=== PATIENT | male | born 1970 | race Caucasian/White ===

== ENCOUNTER 2016-05-24 00:10 | Inpatient (IN) | payer OTHER ==
[~2016-05-24] VITALS: Ht 182.9 cm; Wt 126.7 kg
[~2016-05-24 00:10] MED LIST: ALPR.5T PO; CRS350T PO; HYDR-3720 PO; LISI40TA
[2016-05-24] MEDS ORDERED: METF850T2 PO (00:56)
[2016-05-24] MEDS ORDERED: LACTATED RINGERS 1,000 ML IV ONE (01:22)
[2016-05-24] MEDS ORDERED: KETOROLAC 30 MG/ML VIAL IVP STA (01:22)
[2016-05-24 01:28] LABS: BILIRUBIN,URINE NEGATIVE (NEGATIVE); KETONES,URINE 3+ (NEGATIVE); LEUKOCYTE ESTERASE ,URINE NEGATIVE (NEGATIVE); NITRITE,URINE NEGATIVE (NEGATIVE); PH,URINE 5 (5-9); PROTEIN,URINE NEGATIVE (NEGATIVE); UROBILINOGEN,URINE NORMAL (NORMAL)
[2016-05-24] MEDS ORDERED: ONDANSETRON 4 MG/2 ML (SDV) Z0FRAN IVP ONE ×2 (01:30→12:15)
[2016-05-24] MEDS ORDERED: NS IV 1000 ML 1,000 ML IV ONE ×2 (01:30→02:01)
[2016-05-24 01:36] LABS: BASOPHILS % (AUTO) 0 % (0-10); EOSINOPHILS % (AUTO) 0 % (0-10); LYMPHOCYTES # (AUTO) 1.2 X 10^3 (1.0-4.0); LYMPHOCYTES % (AUTO) 11 % (12-44); MEAN CORPUSCULAR HEMOGLOBIN 28 PG (25-34); MEAN CORPUSCULAR HGB CONC 34 G/DL (32-36); MEAN CORPUSCULAR VOLUME 81 FL (80-99); MEAN PLATELET VOLUME 10.5 FL (7.4-10.4); MONOCYTES # (AUTO) 0.8 X 10^3 (0.0-1.0); MONOCYTES % (AUTO) 7 % (0-12); NEUTROPHILS # (AUTO) 9.2 X 10^3 (1.8-7.8); NEUTROPHILS % (AUTO) 82 % (42-75); PLATELET COUNT 238 10^3/uL (130-400); RED CELL DISTRIBUTION WIDTH 12.8 % (10.0-14.5); WHITE BLOOD COUNT 11.3 10^3/uL (4.3-11.0)
[2016-05-24 01:37] LABS: SQUAMOUS EPITHELIAL CELL,UR RARE /HPF
--- NOTE | 2016-05-24 01:40 | ED Abdominal Pain ---
General Chief Complaint: Abdominal/GI Problems Stated Complaint: CONSTIPATION Nursing Triage Note: patient reports not having a BM since thursday the Sepsis Screen: No Definite Risk Source of Information: Patient History of Present Illness Time Seen By Provider: 01:00 Initial Comments PT C/O SEVERE GENERALIZED ABDOMINAL PAIN ALL WEEK AND IS GETTING WORSE--STATES HE IS CONSTIPATED STATES HE HAS NOT HAD A BM SINCE Thursday05/19/16--STOOL AT THAT TIME WAS LIQUID , AND NOT PASSED ANYTHING ELSE SINCE THEN STOPPED PASSING GAS SEVERAL HOURS AGO BEGAN HAVING NAUSEA AND VOMITING THIS EVENING--HAS VOMITED 3-4 TIMES THIS EVENING HAS HAD DECREASED APPETITE, BUT HAS EATEN AND DRANK TODAY, BUT TONIGHT HAS NOT BEEN ABLE TO KEEP ANYTHING DOWN NO FEVER NO PROBLEMS URINATING NO RELIEF WITH PRUNE JUICE AND ENEMAS STATES HE OCCASIONALLY GETS CONSTIPATED BUT IS RESOLVED WITH PRUNE JUICE AND "GUMMY FIBER" ,BUT HAS NEVER BEEN THIS BAD PCP: DR. LLAMAS Allergies and Home Medications Allergies Coded Allergies: No Known Drug Allergies (Unverified , 05/24/16) Home Medications Alprazolam 0.5 Mg Tablet (Reported) Carisoprodol 350 Mg Tablet #30 1 TAB PO TID Prescribed by: JAC UREÑA on 04/03/097 Hydrocodone Bit/Acetaminophen 1 Ea Tab #30 1 EA PO Q6HR PRN Prescribed by: JAC UREÑA on 04/03/097 Lisinopril 40 Mg Tablet (Reported) Metformin HCl 850 Mg Tablet 850 MG PO BID (Reported) Review of Systems Constitutional: no symptoms reported EENTM: No Symptoms Reported Respiratory: No Symptoms Reported Cardiovascular: No Symptoms Reported Gastrointestinal: See HPI Abdominal Pain ConstipatedDenies Diarrhea, Nausea Poor Appetite Vomiting Genitourinary: No Symptoms Reported Musculoskeletal: no symptoms reported Skin: no symptoms reported Psychiatric/Neurological: No Symptoms Reported Endocrine: No Symptoms Reported Hematologic/Lymphatic: No Symptoms Reported Past [id number] Hx Patient Social History Alcohol Use: Occasionally Uses Recreational Drug Use: No Smoking Status: Never a Smoker Type Used: Smokeless Tobacco Recent Foreign Travel: No Contact w/Someone Who Travel: No Recent Infectious Disease Expo: No Recent Hopitalizations: No Surgeries HX Surgeries: Yes Surgeries: Appendectomy Respiratory Hx Respiratory Disorders: No Cardiovascular Hx Cardiac Disorders: Yes Cardiac Disorders: Hypertension Neurological Hx Neurological Disorders: No Reproductive System Hx Reproductive Disorders: No Sexually Transmitted Disease: No Gastrointestinal Hx Gastrointestinal Disorders: Yes Gastrointestinal Disorders: Chronic Constipation Musculoskeletal Hx Musculoskeletal Disorders: No Endocrine Hx Endocrine Disorders: Yes Endocrine Disorders: Diabetes, Non-Insulin dep HEENT HX ENT Disorders: No Cancer Hx Cancer: No Psychosocial Hx Psychiatric Problems: No Integumentary HX Skin/Integumentary Disorder: No Blood Transfusions Hx Blood Disorders: No Physical Exam Vital Signs VS - Last 72 Hours, by Label 05/24/16 05/24/16 00:52 02:31 Temp 99.0 Pulse 108 84 Resp 18 14 B/P 129/94 137/85 Pulse Ox 96 94 O2 Delivery Room Air Capillary Refill : Less Than 3 Seconds General Appearance: WD/WN no apparent distress obese HEENT: PERRL/EOMI other (PETECHIAE TO FAC) Respiratory: normal breath sounds no respiratory distress no accessory muscle use Cardiovascular: regular rate, rhythm no murmur Gastrointestinal: abnormal bowel sounds (HIGH PITCHED/HYPERACTIVE) distended ( MILDLY )No guarding, No rebound, tenderness (MODERATE DIFFUSE TENDERNESS)No hernia, No mass Extremities: normal inspection Back: no CVA tenderness 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 no motor/sensory deficits alert oriented x 3 Skin: normal color warm/dry Progress/Results/Core Measures Results/Orders Lab Results Laboratory Tests Test 05/24/16 01:20 05/24/16 01:25 05/24/16 02:59 Range/Units Urine Bacteria NEGATIVE /HPF Urine Bilirubin NEGATIVE NEGATIVE Urine Casts NONE /LPF Urine Clarity CLEAR Urine Color YELLOW Urine Crystals NONE /LPF Urine Culture Indicated NO Urine Glucose (UA) 4+ H NEGATIVE Urine Ketones 3+ H NEGATIVE Urine Leukocyte Esterase NEGATIVE NEGATIVE Urine Mucus NEGATIVE /LPF Urine Nitrite NEGATIVE NEGATIVE Urine Protein NEGATIVE NEGATIVE Urine RBC NONE /HPF Urine RBC (Auto) NEGATIVE NEGATIVE Urine Specific [place] 1.015 L 1.016-1.022 Urine Squamous Epithelial Cells RARE /HPF Urine Urobilinogen NORMAL NORMAL MG/DL Urine WBC NONE /HPF Urine pH 5 5-9 Alanine Aminotransferase (ALT/SGPT) 50 0-55 U/L Albumin 4.7 H 3.2-4.5 G/DL Alkaline Phosphatase 92 40-136 U/L Amylase Level 50 25-125 U/L Anion Gap 15 H 5-14 MMOL/L Aspartate Amino Transf (AST/SGOT) 21 5-34 U/L BUN/Creatinine Ratio 9 Basophils # (Auto) 0.0 0.0-0.1 10^3/uL Basophils (%) (Auto) 0 0-10 % Blood Urea Nitrogen 11 7-18 MG/DL Calcium Level 9.2 8.5-10.1 MG/DL Carbon Dioxide Level 18 L 21-32 MMOL/L Chloride Level 102 98-107 MMOL/L Creatinine 1.22 0.60-1.30 MG/DL Eosinophils # (Auto) 0.0 0.0-0.3 10^3/uL Eosinophils (%) (Auto) 0 0-10 % Estimat Glomerular Filtration Rate > 60 Glucose Level 411 *H 70-105 MG/DL Hematocrit 44 40-54 % Hemoglobin 14.9 13.3-17.7 G/DL Lipase 29 8-78 U/L Lymphocytes # (Auto) 1.2 1.0-4.0 X 10^3 Lymphocytes (%) (Auto) 11 L 12-44 % Mean Corpuscular Hemoglobin 28 25-34 PG Mean Corpuscular Hemoglobin Concent 34 32-36 G/DL Mean Corpuscular Volume 81 80-99 FL Mean Platelet Volume 10.5 H 7.4-10.4 FL Monocytes # (Auto) 0.8 0.0-1.0 X 10^3 Monocytes (%) (Auto) 7 0-12 % Neutrophils # (Auto) 9.2 H 1.8-7.8 X 10^3 Neutrophils (%) (Auto) 82 H 42-75 % Platelet Count 238 130-400 10^3/uL Potassium Level 4.5 3.6-5.0 MMOL/L Red Blood Count 5.40 4.35-5.85 10^6/uL Red Cell Distribution Width 12.8 10.0-14.5 % Sodium Level 135 135-145 MMOL/L Total Bilirubin 0.4 0.1-1.0 MG/DL Total Protein 7.8 6.4-8.2 G/DL White Blood Count 11.3 H 4.3-11.0 10^3/uL Glucometer 300 H 70-110 MG/DL My Orders Orders-PAWAN GATES DO Acute Abd Series (05/24/16 01:10) Saline Lock/Iv-Start (05/24/16 01:22) Amylase (05/24/16 01:22) Cbc With Automated Diff (05/24/16 01:22) Comprehensive Metabolic Panel (05/24/16 01:22) Lipase (05/24/16 01:22) Ua Culture If Indicated (05/24/16 01:22) Ct Abdomen/Pelvis W (05/24/16 01:22) Saline Lock/Iv-Start (05/24/16 01:22) Ondansetron Injection (Zofran Injectio (05/24/16 01:30) Saline Lock/Iv-Start (05/24/16 01:22) Lactated Ringers (Lr 1000 Ml Iv Solution (05/24/16 01:22) Ketorolac Injection (Toradol Injection) (05/24/16 01:22) Ns Iv 1000 Ml (Sodium Chloride 0.9%) (05/24/16 01:30) Saline Lock/Iv-Start (05/24/16 02:01) Ns Iv 1000 Ml (Sodium Chloride 0.9%) (05/24/16 02:01) Insulin (Regular) Human (Humulin R (Per (05/24/16 02:15) Iohexol Injection (Omnipaque 350 Mg/Ml 1 (05/24/16 02:15) Ns (Ivpb) (Sodium Chloride 0.9% Ivpb Bag (05/24/16 02:15) Medications Given in ED Current Medications Medications Dose Ordered Sig/Xena Route Start Time Stop Time Status Last Admin Dose Admin Insulin Human Regular 20 unit ONCE ONCE IV 05/24/16 02:15 05/24/16 02:16 DC 05/24/16 02:27 20 UNIT Iohexol 100 ml ONCE ONCE IV 05/24/16 02:15 05/24/16 02:16 DC 05/24/16 02:15 100 ML Ondansetron HCl 4 mg 4 mg ONCE ONCE IVP 05/24/16 01:30 05/24/16 01:31 DC 05/24/16 01:30 4 MG Sodium Chloride 100 ml ONCE ONCE IV 05/24/16 02:15 05/24/16 02:16 DC 05/24/16 02:16 80 ML Sodium Chloride 1,000 ml @ 0 mls/hr Q0M ONCE IV 05/24/16 02:01 05/24/16 02:03 DC 05/24/16 02:26 0 MLS/HR Sodium Chloride 1,000 ml @ 100 mls/hr Q10H ONCE IV 05/24/16 01:30 05/24/16 11:29 05/24/16 01:30 100 MLS/HR Vital Signs/I&O Vital Sign - Last 12Hours 05/24/16 05/24/16 00:52 02:31 Temp 99.0 Pulse 108 84 Resp 18 14 B/P 129/94 137/85 Pulse Ox 96 94 O2 Delivery Room Air Blood Pressure Mean: 106 Progress Note : Progress Note NAUSEA AND PAIN IMPROVED WITH MEDICATIONS BLOOD SUGAR DOWN TO 300 PRIOR TO ADMIT. Diagnostic Imaging Comments ACUTE ABDOMEN XRAYS--ILEUS, POSSIBLE SBO? --PENDING RADIOLOGIST REVIEW CT ABDOMEN/PELVIS--RECTOSIGMOID COLON WITH FOCAL NARROWING AND IRREGULAR WALL THICKENING, CAUSING PARTIAL COLONIC OBSTRUCTION. ADJACENT LYMPH NODES NOTED. SUSPICION FOR NEOPLASTIC DISEASE. DIVERTICULAR DISEASE AND POSSIBLE FOCAL COLITIS/DIVERTICULITIS OR STRICTURE. PER [facility] VIA FAX @ [phone] Reviewed: Reviewed by Me Departure Communication Progress Notes 0255--SPOKE WITH DR. CERDA, SURGEON INFANTRY ASSAULTMAN. ACCEPTS PT FOR ADMIT. WILL CONSULT HOSPITALIST IN AM FOR MEDICAL ISSUES. Impression Impression: Primary Impression: PARTIAL COLON OBSTRUCTION Additional Impressions: POSSIBLE RECTOSIGMOID MASS POSSIBLE COLITIS/DIVERTICULITIS Uncontrolled diabetes mellitus Disposition: ADMITTED INPATIENT Condition: Improved Decision to Admit Reason: Admit from ER (General) Decision to Admit/Date: May 24, 2016 Time/Decision to Admit Time: 03:00 Departure-Patient Inst. Referrals: GABRIELLA LLAMAS MD (PCP/Family) Primary Care Physician PAWAN GATES DO May 24, 2016 01:40
[2016-05-24 01:57] LABS: ALANINE AMINOTRANSFERASE 50 U/L (0-55); ALBUMIN 4.7 G/DL (3.2-4.5); AMYLASE 50 U/L (25-125); ANION GAP 15 MMOL/L (5-14); ASPARTATE AMINO TRANSFERASE 21 U/L (5-34); BILIRUBIN,TOTAL 0.4 MG/DL (0.1-1.0); BLOOD UREA NITROGEN 11 MG/DL (7-18); BUN/CREATININE RATIO 9; CALCIUM 9.2 MG/DL (8.5-10.1); CARBON DIOXIDE 18 MMOL/L (21-32); CHLORIDE 102 MMOL/L (98-107); CREATININE SERUM 1.22 MG/DL (0.60-1.30); GFR ESTIMATED > 60; LIPASE 29 U/L (8-78); POTASSIUM 4.5 MMOL/L (3.6-5.0); SODIUM 135 MMOL/L (135-145); TOTAL PROTEIN 7.8 G/DL (6.4-8.2)
[2016-05-24 01:59] LABS: GLUCOSE 411 MG/DL (70-105)
[2016-05-24] MEDS ORDERED: inSUlin (REGULAR) HUMAN 1 UNIT/0.01 ML (CHARGE PER UNIT) IV ONE (02:15)
[2016-05-24] MEDS ORDERED: NS 100 ML (IVPB) BAG IV ONE (02:15)
[2016-05-24] MEDS ORDERED: IOHEXOL 350 MG/ML 100 ML (OMNIPAQUE 350) VIAL IV ONE (02:15)
[2016-05-24 02:31] VITALS: BP 137/85
[2016-05-24] MEDS ORDERED: LEVOFLOXACIN 500 MG/100 ML IV 100 ML IV ONE (03:15)
[2016-05-24] MEDS ORDERED: 1/2 NS IV SOLUTION 1,000 ML IV ONE (05:15)
[2016-05-24] MEDS: 1/2 NS IV SOLUTION 1,000 ML IV SCH ×3 (05:20→19:35)
[2016-05-24] MEDS: metroNIDAZOLE 500 MG/100 ML IVPB (PRE-MIX) IV SCH ×3 (06:23→18:07)
--- NOTE | 2016-05-24 06:27 | Diagnostic Imaging Report ---
INDICATION: Constipation. FINDINGS: The lungs are clear. There is no free air under the diaphragm. Upright film shows multiple air-fluid levels throughout the small bowel and colon. There is not significant dilatation of the bowel suggesting this is most likely an adynamic ileus versus bowel obstruction. No organomegaly. No pathologic calcifications. IMPRESSION: Findings most likely representing adynamic ileus. Dictated by: Dictated on workstation # [id number]
[2016-05-24] MEDS ORDERED: CATHETER FLUSH 10 ML SYR IV PRN (06:30)
[2016-05-24 06:42] LABS: BASOPHILS % (AUTO) 0 % (0-10); EOSINOPHILS # (AUTO) 0.1 10^3/uL (0.0-0.3); EOSINOPHILS % (AUTO) 1 % (0-10); LYMPHOCYTES # (AUTO) 1.8 X 10^3 (1.0-4.0); LYMPHOCYTES % (AUTO) 21 % (12-44); MEAN CORPUSCULAR HEMOGLOBIN 28 PG (25-34); MEAN CORPUSCULAR HGB CONC 34 G/DL (32-36); MEAN CORPUSCULAR VOLUME 82 FL (80-99); MEAN PLATELET VOLUME 10.6 FL (7.4-10.4); MONOCYTES # (AUTO) 0.8 X 10^3 (0.0-1.0); MONOCYTES % (AUTO) 10 % (0-12); NEUTROPHILS # (AUTO) 5.8 X 10^3 (1.8-7.8); NEUTROPHILS % (AUTO) 68 % (42-75); PLATELET COUNT 215 10^3/uL (130-400); RED BLOOD COUNT 4.71 10^6/uL (4.35-5.85); RED CELL DISTRIBUTION WIDTH 12.8 % (10.0-14.5); WHITE BLOOD COUNT 8.6 10^3/uL (4.3-11.0)
--- NOTE | 2016-05-24 06:46 | Diagnostic Imaging Report ---
PROCEDURE: CT abdomen and pelvis with contrast. TECHNIQUE: Multiple contiguous axial images were obtained through the abdomen and pelvis after administration of intravenous contrast. INDICATION: Chronic constipation. FINDINGS: The colon is distended and filled with fluid with air-fluid levels present. Small bowel is not distended. There is a segment of thickening of the sigmoid colon bowel wall measuring approximately 7 cm in length. This does appear to be causing obstruction and is of concern for colon carcinoma. There are several small adjacent mesenteric lymph nodes. No free fluid or findings are seen that would indicate acute diverticulitis. There are diverticuli present. There is fatty infiltration of the liver with mild hepatomegaly. The gallbladder and bile ducts are normal. The pancreas and spleen are normal. The adrenal glands and kidneys appear normal. There is good opacification of the aorta and abdominal vessels following IV contrast. There is no free air. There are no destructive bony lesions. IMPRESSION: Obstructive process in the distal colon with thickening of the sigmoid bowel wall and adjacent lymph nodes which are highly suspicious of carcinoma. Followup is needed. These findings are in agreement with the preliminary report. Dictated by: Dictated on workstation # [id number]
[2016-05-24 07:03] LABS: ALANINE AMINOTRANSFERASE 41 U/L (0-55); ANION GAP 11 MMOL/L (5-14); ASPARTATE AMINO TRANSFERASE 18 U/L (5-34); BILIRUBIN,TOTAL 0.3 MG/DL (0.1-1.0); BLOOD UREA NITROGEN 10 MG/DL (7-18); BUN/CREATININE RATIO 10; CALCIUM 8.2 MG/DL (8.5-10.1); CARBON DIOXIDE 20 MMOL/L (21-32); CHLORIDE 106 MMOL/L (98-107); CREATININE SERUM 0.96 MG/DL (0.60-1.30); GFR ESTIMATED > 60; GLUCOSE 207 MG/DL (70-105); POTASSIUM 4.1 MMOL/L (3.6-5.0); SODIUM 137 MMOL/L (135-145); TOTAL PROTEIN 6.6 G/DL (6.4-8.2)
[2016-05-24 08:00] VITALS: BP 138/74
--- NOTE | 2016-05-24 11:02 | Consultation ---
History of Present Illness History of Present Illness Patient Consulted On(matthew/time) 05/24/16 10:55 Date of Admission History of Present Illness Pt is a 46 yo male with complaints of constipation; surgery is asked to consult regarding possible large bowel obstruction. In the ER: PT C/O SEVERE GENERALIZED ABDOMINAL PAIN ALL WEEK AND IS GETTING WORSE--STATES HE IS CONSTIPATED STATES HE HAS NOT HAD A BM SINCE Thursday05/19/16--STOOL AT THAT TIME WAS LIQUID , AND NOT PASSED ANYTHING ELSE SINCE THEN STOPPED PASSING GAS SEVERAL HOURS AGO BEGAN HAVING NAUSEA AND VOMITING THIS EVENING--HAS VOMITED 3-4 TIMES THIS EVENING HAS HAD DECREASED APPETITE, BUT HAS EATEN AND DRANK TODAY, BUT TONIGHT HAS NOT BEEN ABLE TO KEEP ANYTHING DOWN NO FEVER NO PROBLEMS URINATING NO RELIEF WITH PRUNE JUICE AND ENEMAS STATES HE OCCASIONALLY GETS CONSTIPATED BUT IS RESOLVED WITH PRUNE JUICE AND "GUMMY FIBER" ,BUT HAS NEVER BEEN THIS BAD When seen today he states he basically has no pain, just the constipation and he feels like "things are starting to gurgle". On the CT; radiologist read possible large bowel obstruction in the sigmoid region, also multiple diverticula seen in this area. He denies any previous history of LLQ pain. Pt denied any hematochezia or melena. Denies N/V today. Allergies and Home Medications Allergies Coded Allergies: No Known Drug Allergies (Unverified , 05/24/16) Home Medications Alprazolam 0.5 Mg Tablet (Reported) Carisoprodol 350 Mg Tablet #30 1 TAB PO TID Prescribed by: JAC UREÑA on 04/03/097 Hydrocodone Bit/Acetaminophen 1 Ea Tab #30 1 EA PO Q6HR PRN Prescribed by: JAC UREÑA on 04/03/097 Lisinopril 40 Mg Tablet (Reported) Metformin HCl 850 Mg Tablet 850 MG PO BID (Reported) Past Wrfsrtx-Jwkcna-Ygbcgy Hx Patient Social History Alcohol Use: Denies Use Recreational Drug Use: No Smoking Status: Never a Smoker Type Used: Smokeless Tobacco Recent Foreign Travel: No Contact w/Someone Who Travel: No Recent Infectious Disease Expo: No Recent Hopitalizations: No Physical Abuse Screen: No Sexual Abuse: No Immunizations Up To Date PED Vaccines UTD: No Date of Pneumonia Vaccine: Feb 05, 2016 Date of Influenza Vaccine: Feb 05, 2016 Seasonal Allergies Seasonal Allergies: Yes Surgeries HX Surgeries: Yes Surgeries: Appendectomy Respiratory Hx Respiratory Disorders: No Cardiovascular Hx Cardiac Disorders: Yes Cardiac Disorders: Hypertension Neurological Hx Neurological Disorders: No Reproductive System Hx Reproductive Disorders: No Sexually Transmitted Disease: No Gastrointestinal Hx Gastrointestinal Disorders: Yes Gastrointestinal Disorders: Chronic Constipation, Hemorrhoids Musculoskeletal Hx Musculoskeletal Disorders: No Musculoskeletal Disorders: Fractures Endocrine Hx Endocrine Disorders: Yes Endocrine Disorders: Diabetes, Non-Insulin dep HEENT HX ENT Disorders: No Cancer Hx Cancer: No Psychosocial Hx Psychiatric Problems: No Behavioral Health Disorders: Anxiety, Depression Integumentary HX Skin/Integumentary Disorder: No Blood Transfusions Hx Blood Disorders: No Adverse Reaction to a Blood Tr: No Family Medical History Significant Family History: Diabetes, Other Conditions/Hx (states father and brother have diverticulitis) Family Medial History: Arthritis 19 FATHER 19 MOTHER G8 SISTER Asthma G8 SISTER Diabetes mellitus 19 FATHER FH: breast cancer 19 MOTHER FH: irritable bowel syndrome 19 FATHER G8 SISTER FH: skin cancer 19 FATHER G8 SISTER Myocardial infarction 19 MOTHER Review of Systems-General Constitutional: No chills, No diaphoresis, No dizziness, No weakness EENTM: No blurred vision, No ear discharge, No epistaxis, No hearing loss, No mouth swelling, No throat swelling, No vision loss Respiratory: No cough, No dyspnea on exertion, No hemoptysis, No short of breath Cardiovascular: No chest pain, No edema, No palpitations Gastrointestinal: see HPI constipationNo hematemesis, heartburnNo melena, nausea vomiting Genitourinary: No decreased output, No discharge, No dysuria, No hematuria Musculoskeletal: back pain muscle stiffnessNo neck pain Skin: No change in color, No change in hair/nails Psychiatric/Neurological: Denies Anxiety, Denies Depressed, Denies Headache, Denies Paresthesia, Denies Seizure Other denies any chronic illnesses, no swollen lymph nodes Physical Exam-General Problems Physical Exam Vital Signs Vital Sign - Last 12Hours 05/24/16 05/24/16 00:52 02:31 Temp 99.0 Pulse 108 Resp 18 B/P 129/94 Pulse Ox 96 O2 Delivery Room Air Capillary Refill : Less Than 3 Seconds General Appearance: WD/WN no apparent distress obese Eyes: Bilateral Eye EOMI, Bilateral Eye PERRL HEENT: pharynx normalNo scleral icterus (R), No scleral icterus (L), No pharyngeal erythema Neck: non-tender full range of motion supple normal inspection Respiratory: chest non-tender lungs clear normal breath sounds no respiratory distress Cardiovascular: regular rate, rhythm no edema no murmur Gastrointestinal: soft no organomegaly no pulsatile mass abnormal bowel sounds (??hyperactive) tenderness (in LLQ with deep palpation) Rectal: deferred Back: normal inspection no CVA tenderness no vertebral tenderness Extremities: normal range of motion non-tender no pedal edema no calf tenderness 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 no motor/sensory deficits alert normal mood/affect oriented x 3 Skin: normal color warm/dry Lymphatic: no adenopathy (neck, axilla or groin) Data Review Labs Laboratory Tests 05/24/16 01:20: Urine Bacteria NEGATIVE, Urine Bilirubin NEGATIVE, Urine Casts NONE, Urine Clarity CLEAR, Urine Color YELLOW, Urine Crystals NONE, Urine Culture Indicated NO, Urine Glucose (UA) 4+H, Urine Ketones 3+H, Urine Leukocyte Esterase NEGATIVE , Urine Mucus NEGATIVE, Urine Nitrite NEGATIVE, Urine Protein NEGATIVE, Urine RBC NONE, Urine RBC (Auto) NEGATIVE, Urine Specific [place] 1.015L, Urine Squamous Epithelial Cells RARE, Urine Urobilinogen NORMAL, Urine WBC NONE, Urine pH 5 05/24/16 01:25: Alanine Aminotransferase (ALT/SGPT) 50, Albumin 4.7H, Alkaline Phosphatase 92, Amylase Level 50, Anion Gap 15H, Aspartate Amino Transf (AST/SGOT) 21, BUN/ Creatinine Ratio 9, Basophils # (Auto) 0.0, Basophils (%) (Auto) 0, Blood Urea Nitrogen 11, Calcium Level 9.2, Carbon Dioxide Level 18L, Chloride Level 102, Creatinine 1.22, Eosinophils # (Auto) 0.0, Eosinophils (%) (Auto) 0, Estimat Glomerular Filtration Rate > 60, Glucose Level 411*H, Hematocrit 44, Hemoglobin 14.9, Lipase 29, Lymphocytes # (Auto) 1.2, Lymphocytes (%) (Auto) 11L, Mean Corpuscular Hemoglobin 28, Mean Corpuscular Hemoglobin Concent 34, Mean Corpuscular Volume 81, Mean Platelet Volume 10.5H, Monocytes # (Auto) 0.8, Monocytes (%) (Auto) 7, Neutrophils # (Auto) 9.2H, Neutrophils (%) (Auto) 82H, Platelet Count 238, Potassium Level 4.5, Red Blood Count 5.40, Red Cell Distribution Width 12.8, Sodium Level 135, Total Bilirubin 0.4, Total Protein 7.8, White Blood Count 11.3H 05/24/16 02:59: Glucometer 300H 05/24/16 06:00: Alanine Aminotransferase (ALT/SGPT) 41, Albumin 4.0, Alkaline Phosphatase 76, Anion Gap 11, Aspartate Amino Transf (AST/SGOT) 18, BUN/Creatinine Ratio 10, Basophils # (Auto) 0.0, Basophils (%) (Auto) 0, Blood Urea Nitrogen 10, Calcium Level 8.2L, Carbon Dioxide Level 20L, Chloride Level 106, Creatinine 0.96, Eosinophils # (Auto) 0.1, Eosinophils (%) (Auto) 1, Estimat Glomerular Filtration Rate > 60, Glucose Level 207H, Hematocrit 39L, Hemoglobin 13.0L, Lymphocytes # (Auto) 1.8, Lymphocytes (%) (Auto) 21, Mean Corpuscular Hemoglobin 28, Mean Corpuscular Hemoglobin Concent 34, Mean Corpuscular Volume 82, Mean Platelet Volume 10.6H, Monocytes # (Auto) 0.8, Monocytes (%) (Auto) 10 , Neutrophils # (Auto) 5.8, Neutrophils (%) (Auto) 68, Platelet Count 215, Potassium Level 4.1, Red Blood Count 4.71, Red Cell Distribution Width 12.8, Sodium Level 137, Total Bilirubin 0.3, Total Protein 6.6, White Blood Count 8.6 05/24/16 06:11: Glucometer 190H Assessment/Plan Assessment/Plan Assessment/Plan Possible Large bowel obstruction -Plan is to take pt for Flex Sig, possible biopsy, possible colonoscopy; need to look at this area of transition. Pt is NPO, on IV ABX and will get soap suds enema. Discussed the procedure with the pt all risks and benefits; including but not limited to pain, bleeding, infection and possible perforation of bowel. An option is to not do this procedure; but eventually it will get worse and may even need resection of bowel. I think this is the best option for pt; will then be able to make a better informed decision on next step in care of pt. He agreed and all qustions answered to his satisfaction. DM- uncontrolled, pt needs to do better job with diet and his meds. Medicine will help control his blood sugar. Elevated WBC - resolved now with IV ABX Clinical Quality Measures DVT/VTE Risk/Contraindication: Risk Factor Score Per Nursin RFS Level Per Nursing on Admit: 3=High SUMMER CERDA DO May 24, 2016 11:01
[2016-05-24] MEDS ORDERED: proPOfol 200 MG/20 ML (DIPRIVAN) VIAL IV ONE (11:23)
[2016-05-24] MEDS ORDERED: NS IV 500 ML 500 ML ONE (11:25)
[2016-05-24] MEDS ORDERED: ONDANSETRON 4 MG/2 ML (SDV) Z0FRAN ONE (11:59)
--- NOTE | 2016-05-24 12:02 | Progress Note-Post Operative ---
Post-Operative Progess Note [place] [employer] None Pre-Operative Diagnosis Possible large bowel obstruction Post-Operative Diagnosis Sigmoid mass Diverticula Int hemmorrhoids Post-Op Procedure Note Date of Procedure: May 24, 2016 Name of Procedure: Flex sig with biopsy Anesthesia Type IV sedation by STRATEGY LEAD with propofol Estimated blood loss (mL): scant Specimen(s) collected sigmoid mass bx SUMMER CERDA DO May 24, 2016 12:01
[2016-05-24] MEDS: ONDANSETRON 4 MG/2 ML (SDV) Z0FRAN IV PRN ×2 (12:08→12:30)
[2016-05-24] MEDS: inSUlin ASPART (NovoLOG) 1 UNIT/0.01 ML (CHARGE PER UNIT) SC SCH ×2 (12:30→18:19)
--- NOTE | 2016-05-24 12:35 | History & Physical-Hospitalist ---
HPI History of Present Illness: HPI/Chief Complaint this is a 46-year-old white male with history of type II diabetes. He was admitted yesterday with partial bowel obstruction. CT showed evidence of a mass in the sigmoid colon concerning for malignancy. He is currently just post flexible sigmoidoscopy by Dr. Lowe. [place] of nausea and abdominal cramping and pain. After review of the scope with Dr. Lowe this looks most likely to be an inflammatory mass from diverticulitis. His plan is to continue clear liquids throughout the weekend and then surgical resection Thursday or Thursday. Source: family, RN/MD Exam Limitations: clinical condition Date Seen 05/24/16 Attending Physician Darrel Lowe Rachel L MD Referring Physician Date of Admission May 24, 2016 at 03:00 Home Medications & Allergies Home Medications Reviewed patient Home Medication Reconciliation Form Allergies Coded Allergies: No Known Drug Allergies (Unverified , 05/24/16) Past Jglrhvv-Lddvre-Fvifzd Hx Patient Social History Marrital Status: Alcohol Use: Denies Use Recreational Drug Use: No Smoking Status: Never a Smoker Type Used: Smokeless Tobacco Physical Abuse Screen: No Sexual Abuse: No Recent Foreign Travel: No Contact w/other who traveled: No Recent Hopitalizations: No Recent Infectious Disease Expo: No Immunizations Up To Date Date of Pneumonia Vaccine: Feb 05, 2016 Date of Influenza Vaccine: Feb 05, 2016 Seasonal Allergies Seasonal Allergies: Yes Surgeries HX Surgeries: Yes Surgeries: Appendectomy Respiratory Hx Respiratory Disorders: No Cardiovascular Hx Cardiovascular Disorders: Yes Cardiac Disorders: Hypertension Neurological Hx Neurological Disorders: No Reproductive System Hx Reproductive Disorders: No Sexually Transmitted Disease: No Gastrointestinal Hx Gastrointestinal Disorders: Yes Gastrointestinal Disorders: Chronic Constipation, Hemorrhoids Musculoskeletal Hx Musculoskeletal Disorders: No Musculoskeletal Disorders: Fractures Endocrine Hx Endocrine Disorders: Yes Endocrine Disorders: Diabetes, Non-Insulin dep HEENT HX ENT Disorders: No Cancer Hx Cancer: No Psychosocial Hx Psychiatric Problems: No Behavioral Health Disorders: Anxiety, Depression Integumentary HX Skin/Integumentary Disorder: No Blood Transfusions Hx Blood Disorders: No Adverse Reaction to a Blood Tr: No Family Medical History Significant Family History: Diabetes, Other Conditions/Hx (states father and brother have diverticulitis) Family Hx: Arthritis 19 FATHER 19 MOTHER G8 SISTER Asthma G8 SISTER Diabetes mellitus 19 FATHER FH: breast cancer 19 MOTHER FH: irritable bowel syndrome 19 FATHER G8 SISTER FH: skin cancer 19 FATHER G8 SISTER Myocardial infarction 19 MOTHER Review of Systems Constitutional: see HPI Gastrointestinal: abdominal pain constipation Musculoskeletal: no symptoms reported Physical Exam Physical Exam Vital Signs Vital Sign - Last 12Hours 05/24/16 05/24/16 00:52 02:31 Temp 99.0 Pulse 108 Resp 18 B/P 129/94 Pulse Ox 96 O2 Delivery Room Air Capillary Refill : Less Than 3 Seconds General Appearance: Mild Distress HEENT: Normal ENT Inspection Neck: Supple Respiratory: Lungs Clear Normal Breath Sounds No Accessory Muscle Use No Respiratory Distress Cardiovascular: Regular Rate, Rhythm No Gallop No Murmur Gastrointestinal: Abnormal Bowel Sounds Distended Tenderness Rectal: Deferred Extremity: Normal Inspection Normal Range of Motion Non Tender No Calf Tenderness Neurologic/Psychiatric: Alert Oriented x3 No Motor/Sensory Deficits Results Results/Procedures Lab Laboratory Tests 05/24/16 01:25 05/24/16 06:00 Assessment/Plan Admission Diagnosis 1.partial bowel obstruction secondary to inflammatory mass of the sigmoid colon most likely diverticular in origin-resection per Dr. Lowe 2. Type II diabetes out of control 3. Hypertension by history 4. Morbid obesity Plan; bowel prep per Dr. Lowe close glucose monitoring, follow labs and an A1c Clinical Quality Measures DVT/VTE Risk/Contraindication: Risk Factor Score Per Nursin RFS Level Per Nursing on Admit: 3=High ELIZABETH BARRIENTOS MD May 24, 2016 12:35
[2016-05-24] MEDS: fentaNYL INJECTION 100 MCG/2 ML AMP IV PRN ×3 (13:08→20:26)
[2016-05-24] MEDS: CATHETER FLUSH 10 ML SYR IV SCH ×2 (15:05→22:00)
[2016-05-24 16:00] VITALS: BP 143/81
[2016-05-24 20:00] VITALS: BP 141/65
[2016-05-24] MEDS: POLYETHYLENE GLYCOL 17 GM (MIRALAX) PACK PO SCH (20:26)
[2016-05-24] MEDS: LEVOFLOXACIN 500 MG/D5W 100 ML (PRE-MIX) IV SCH (20:26)
[2016-05-25] VITALS: BP 118/74
[2016-05-25] MEDS: metroNIDAZOLE 500 MG/100 ML IVPB (PRE-MIX) IV SCH ×4 (00:12→17:43)
[2016-05-25] MEDS: inSUlin ASPART (NovoLOG) 1 UNIT/0.01 ML (CHARGE PER UNIT) SC SCH ×4 (00:15→18:45)
[2016-05-25] MEDS: 1/2 NS IV SOLUTION 1,000 ML IV SCH ×3 (00:17→16:26)
[2016-05-25] MEDS: fentaNYL INJECTION 100 MCG/2 ML AMP IV PRN ×5 (03:40→21:55)
[2016-05-25 04:00] VITALS: BP 137/78
[2016-05-25] MEDS: CATHETER FLUSH 10 ML SYR IV SCH ×3 (05:58→22:00)
[2016-05-25 07:40] LABS: BASOPHILS % (AUTO) 0 % (0-10); EOSINOPHILS # (AUTO) 0.1 10^3/uL (0.0-0.3); EOSINOPHILS % (AUTO) 1 % (0-10); LYMPHOCYTES # (AUTO) 1.7 X 10^3 (1.0-4.0); LYMPHOCYTES % (AUTO) 26 % (12-44); MEAN CORPUSCULAR HEMOGLOBIN 28 PG (25-34); MEAN CORPUSCULAR HGB CONC 33 G/DL (32-36); MEAN CORPUSCULAR VOLUME 83 FL (80-99); MEAN PLATELET VOLUME 10.1 FL (7.4-10.4); MONOCYTES # (AUTO) 0.7 X 10^3 (0.0-1.0); MONOCYTES % (AUTO) 10 % (0-12); NEUTROPHILS # (AUTO) 3.9 X 10^3 (1.8-7.8); NEUTROPHILS % (AUTO) 62 % (42-75); PLATELET COUNT 191 10^3/uL (130-400); RED BLOOD COUNT 4.62 10^6/uL (4.35-5.85); RED CELL DISTRIBUTION WIDTH 12.8 % (10.0-14.5); WHITE BLOOD COUNT 6.4 10^3/uL (4.3-11.0)
[2016-05-25 07:48] LABS: INR 1.1 (0.8-1.4); PROTHROMBIN TIME PATIENT 13.7 SEC (12.2-14.7)
[2016-05-25 08:00] VITALS: BP 143/84
[2016-05-25 08:06] LABS: ALANINE AMINOTRANSFERASE 35 U/L (0-55); ALBUMIN 3.8 G/DL (3.2-4.5); ANION GAP 8 MMOL/L (5-14); ASPARTATE AMINO TRANSFERASE 18 U/L (5-34); BILIRUBIN,TOTAL 0.4 MG/DL (0.1-1.0); BLOOD UREA NITROGEN 6 MG/DL (7-18); BUN/CREATININE RATIO 7; CALCIUM 8.2 MG/DL (8.5-10.1); CARBON DIOXIDE 23 MMOL/L (21-32); CHLORIDE 106 MMOL/L (98-107); CREATININE SERUM 0.91 MG/DL (0.60-1.30); GFR ESTIMATED > 60; GLUCOSE 201 MG/DL (70-105); POTASSIUM 3.8 MMOL/L (3.6-5.0); SODIUM 137 MMOL/L (135-145); TOTAL PROTEIN 6.8 G/DL (6.4-8.2)
--- NOTE | 2016-05-25 11:08 | Progress Note-Hospitalist ---
Subjective HPI/CC On Admission this is a 46-year-old white male with history of type II diabetes. He was admitted yesterday with partial bowel obstruction. CT showed evidence of a mass in the sigmoid colon concerning for malignancy. He is currently just post flexible sigmoidoscopy by Dr. Lowe. [place] of nausea and abdominal cramping and pain. After review of the scope with Dr. Lowe this looks most likely to be an inflammatory mass from diverticulitis. His plan is to continue clear liquids throughout the weekend and then surgical resection Thursday or Thursday. Date Seen 05/25/16 Subjective/Events-last exam patient's abdominal discomfort and gas is much better than it was yesterday. We talked about his diabetes and weight loss. He had been on metformin 875 twice a day but complains of nausea with it and occasional diarrhea. Discussed with him that his A1c was 9.1 currently he complains primarily of headache today which may be related to caffeine withdrawal Review of Systems HEENT: Head Aches Gastrointestinal: : Nausea Objective Exam Vital Signs Vital Sign - Last 12Hours 05/24/16 05/24/16 00:52 02:31 Temp 99.0 Pulse 108 Resp 18 B/P 129/94 Pulse Ox 96 O2 Delivery Room Air Capillary Refill : Less Than 3 Seconds General Appearance: No Apparent Distress WD/WN Obese HEENT: TMs Normal Respiratory: Lungs Clear Normal Breath Sounds No Accessory Muscle Use No Respiratory Distress Cardiovascular: Regular Rate, Rhythm No Gallop No Murmur Normal Peripheral Pulses Gastrointestinal: Normal Bowel Sounds No Organomegaly Non Tender Soft Rectal: Deferred Back: Normal Inspection No CVA Tenderness Extremity: Non Tender No Calf Tenderness No Pedal Edema Neurologic/Psychiatric: Alert Oriented x3 No Motor/Sensory Deficits Normal Mood/Affect Skin: Normal Color Warm/Dry Results/Procedures Lab Laboratory Tests 05/25/16 07:15 Assessment/Plan Assessment and Plan Assess & Plan/Chief Complaint 1. partial bowel obstruction secondary to inflammatory mass of the sigmoid colon most likely diverticular in origin-resection per Dr. Lowe in a.m. 2. Type II diabetes out of control-hemoglobin A1c 9.1 3. Hypertension by history 4. Morbid obesity 5. headache most likely related to caffeine withdrawal ELIZABETH BARRIENTOS MD May 25, 2016 11:08
[2016-05-25 12:00] VITALS: BP 165/80
[2016-05-25] MEDS ORDERED: GOLYTELY POWDER 4000 ML BTL PO ONE (12:00)
[2016-05-25] MEDS: ONDANSETRON 4 MG/2 ML (SDV) Z0FRAN IV PRN ×2 (12:36→17:43)
[2016-05-25 16:00] VITALS: BP 174/96
--- NOTE | 2016-05-25 16:07 | Anesthesia-General Post-Op ---
MAC Patient Condition Mental Status/LOC: Same as Preop Cardiovascular: Satisfactory Nausea/Vomiting: Absent Respiratory: Satisfactory Pain: Controlled Complications: Absent Post Op Complications Complications None Follow Up Care/Instructions Patient Instructions None needed. Anesthesiology Discharge Order Discharge Order Patient is doing well, no complaints, stable vital signs, no apparent adverse anesthesia problems. No complications reported per nursing. RC ESCOBAR CRNA May 25, 2016 16:07
[2016-05-25] MEDS ORDERED: MAGNESIUM CITRATE 300 ML BTL PO ONE (16:15)
[2016-05-25] MEDS ORDERED: POLYETHYLENE GLYCOL 17 GM (MIRALAX) PACK PO ONE (16:15)
[2016-05-25] MEDS: lisINopril 20 MG (ZESTRIL) TAB PO SCH (16:26)
--- NOTE | 2016-05-25 16:30 | Progress Note ---
Subjective Subjective/Events-last exam Pt seen and examined. States pain is minimal. He has had 2 small BM's, but they were brown. He tried to take the Go-lytely, but vomited it up. He is tolerating clears and said the Miralax made him go the bathroom. Denies nausea at this time. Review of Systems General: No Chills, No Night Sweats, Fatigue HEENT: No Head Aches, No Visual Changes, Sinus Congestion Post Nasal Drip Pulmonary: No Dyspnea, No Cough Cardiovascular: No: Chest Pain, Palpitations Gastrointestinal: : Nausea: VomitingNo: Abdominal Pain Genitourinary: No Dysuria, No Frequency Musculoskeletal: No: neck pain, shoulder pain Neurological: No: Incoordination, Numbness, Weakness Objective Exam Vital Signs Date Time Temp Pulse Resp B/P Pulse Ox O2 Delivery O2 Flow Rate FiO2 05/25/16 12:00 98.4 75 18 165/80 97 Room Air 05/25/16 08:00 98.5 75 20 143/84 96 Room Air 05/25/16 04:00 99.4 75 18 137/78 97 Room Air 05/25/16 00:00 99.1 83 20 118/74 94 Room Air 05/24/16 20:25 Room Air 05/24/16 20:00 98.6 73 22 141/65 95 Room Air I & O 05/25/16 07:00 Intake Total 4005 ml Output Total 2600 ml Balance 1405 ml Capillary Refill : Less Than 3 Seconds General Appearance: No Apparent Distress WD/WN Obese HEENT: PERRL/EOMI Pharynx Normal Neck: Supple Respiratory: Lungs Clear Normal Breath Sounds No Accessory Muscle Use No Respiratory Distress Cardiovascular: Regular Rate, Rhythm No Gallop No Murmur Normal Peripheral Pulses Gastrointestinal: soft no organomegaly no pulsatile mass abnormal bowel sounds (??hyperactive) tenderness (in LLQ with deep palpation) Extremity: Non Tender No Calf Tenderness No Pedal Edema Neurologic/Psychiatric: Alert Oriented x3 No Motor/Sensory Deficits Normal Mood/Affect Skin: Normal Color Warm/Dry Results Lab Laboratory Tests 05/24/16 18:12: Glucometer 218H 05/25/16 00:12: Glucometer 204H 05/25/16 05:52: Glucometer 201H 05/25/16 07:15: Alanine Aminotransferase (ALT/SGPT) 35, Albumin 3.8, Alkaline Phosphatase 67, Anion Gap 8, Aspartate Amino Transf (AST/SGOT) 18, BUN/Creatinine Ratio 7, Basophils # (Auto) 0.0, Basophils (%) (Auto) 0, Blood Urea Nitrogen 6L, Calcium Level 8.2L, Carbon Dioxide Level 23, Chloride Level 106, Creatinine 0.91, Eosinophils # (Auto) 0.1, Eosinophils (%) (Auto) 1, Estimat Glomerular Filtration Rate > 60, Glucose Level 201H, Hematocrit 39L, Hemoglobin 12.7L, Hemoglobin A1c 9.1H, INR Comment 1.1, Lymphocytes # (Auto) 1.7, Lymphocytes (%) (Auto) 26, Mean Corpuscular Hemoglobin 28, Mean Corpuscular Hemoglobin Concent 33, Mean Corpuscular Volume 83, Mean Platelet Volume 10.1, Monocytes # (Auto) 0.7, Monocytes (%) (Auto) 10, Neutrophils # (Auto) 3.9, Neutrophils (%) (Auto) 62, Platelet Count 191, Potassium Level 3.8, Prothrombin Time 13.7, Red Blood Count 4.62, Red Cell Distribution Width 12.8, Sodium Level 137, Total Bilirubin 0.4, Total Protein 6.8, White Blood Count 6.4 05/25/16 12:04: Glucometer 297H Assessment/Plan Assessment/Plan Assessment/Plan Sigmoid Mass causing stricture and therefore partial Large bowel obstruction -Plan is to take pt for Hand assisted Lap Sigmoid colon resection. We do not have pathology on mass yet, but he will need resection whether its benign or cancer. Discussed the procedure with the pt all risks and benefits ; including but not limited to pain, bleeding, infection, scar and possible damage to bowel with need for colostomy. We also discussed the up to 1% leak rate after anastomosis. In addition I told him if he was not clear in AM, I would postpone surgery until thursday. I am giving him and extra dose of Miralax now and stopping Go-lytely and giving him a bottle of Mg Citrate. All qustions answered to his satisfaction. DM- uncontrolled, pt needs to do better job with diet and his meds. Medicine will help control his blood sugar. Elevated WBC - resolved now with IV ABX Clinical Quality Measures DVT/VTE Risk/Contraindication: Risk Factor Score Per Nursin RFS Level Per Nursing on Admit: 3=High SUMMER CERDA DO May 25, 2016 16:30
[2016-05-25 20:00] VITALS: BP 170/90
[2016-05-25] MEDS: POLYETHYLENE GLYCOL 17 GM (MIRALAX) PACK PO SCH (21:49)
[2016-05-25] MEDS: LEVOFLOXACIN 500 MG/D5W 100 ML (PRE-MIX) IV SCH (21:50)
[2016-05-26] VITALS: BP 140/66
[2016-05-26] MEDS: 1/2 NS IV SOLUTION 1,000 ML IV SCH ×4 (01:09→16:14)
[2016-05-26] MEDS: metroNIDAZOLE 500 MG/100 ML IVPB (PRE-MIX) IV SCH ×4 (01:09→18:29)
[2016-05-26] MEDS: inSUlin ASPART (NovoLOG) 1 UNIT/0.01 ML (CHARGE PER UNIT) SC SCH ×4 (01:21→19:02)
[2016-05-26 04:00] VITALS: BP 168/96
[2016-05-26 04:57] LABS: BASOPHILS % (AUTO) 0 % (0-10); EOSINOPHILS # (AUTO) 0.1 10^3/uL (0.0-0.3); EOSINOPHILS % (AUTO) 1 % (0-10); LYMPHOCYTES # (AUTO) 2.1 X 10^3 (1.0-4.0); LYMPHOCYTES % (AUTO) 35 % (12-44); MEAN CORPUSCULAR HEMOGLOBIN 28 PG (25-34); MEAN CORPUSCULAR HGB CONC 33 G/DL (32-36); MEAN CORPUSCULAR VOLUME 83 FL (80-99); MEAN PLATELET VOLUME 9.9 FL (7.4-10.4); MONOCYTES # (AUTO) 0.6 X 10^3 (0.0-1.0); MONOCYTES % (AUTO) 10 % (0-12); NEUTROPHILS # (AUTO) 3.1 X 10^3 (1.8-7.8); NEUTROPHILS % (AUTO) 53 % (42-75); PLATELET COUNT 196 10^3/uL (130-400); RED BLOOD COUNT 4.68 10^6/uL (4.35-5.85); RED CELL DISTRIBUTION WIDTH 12.8 % (10.0-14.5); WHITE BLOOD COUNT 5.9 10^3/uL (4.3-11.0)
[2016-05-26 05:22] LABS: ANION GAP 10 MMOL/L (5-14); BLOOD UREA NITROGEN 4 MG/DL (7-18); BUN/CREATININE RATIO 4; CALCIUM 8.3 MG/DL (8.5-10.1); CARBON DIOXIDE 23 MMOL/L (21-32); CHLORIDE 106 MMOL/L (98-107); CREATININE SERUM 0.89 MG/DL (0.60-1.30); GFR ESTIMATED > 60; GLUCOSE 190 MG/DL (70-105); MAGNESIUM 2.2 MG/DL (1.8-2.4); POTASSIUM 3.7 MMOL/L (3.6-5.0); SODIUM 139 MMOL/L (135-145)
[2016-05-26] MEDS: CATHETER FLUSH 10 ML SYR IV SCH ×3 (06:17→22:38)
--- NOTE | 2016-05-26 07:23 | PROCEDURE REPORT ---
PROCEDURE PHYSICIAN: SUMMER LOWE DATE OF PROCEDURE: 05/24/2016 PREOPERATIVE DIAGNOSIS: Possible large bowel obstruction. POSTOPERATIVE DIAGNOSES: 1. Sigmoid mass. 2. Diverticula. 3. Internal hemorrhoids. PROCEDURE: Flexible sigmoidoscopy with biopsy. SURGEON: Dr. Lowe FOLLOW UP MANAGER: None. ANESTHESIA: IV sedation with propofol by the VP ANALYSIS. SPECIMEN: Biopsy from sigmoid mass. BLOOD LOSS: Scant. FLUIDS: Minimal. POSTOPERATIVE: Stable. INDICATIONS FOR THE PROCEDURE: The patient is a 46-year-old male with what looked like a possible large bowel obstruction. On CT with possible transition point, needed flexible sigmoidoscopy to look at this area. FINDINGS: The patient had a mass in the sigmoid area, and also looked to me like some pus. It looked more like a possible inflammatory reaction from diverticulitis. He also had some large diverticula and some internal hemorrhoids. PROCEDURE NOTE: After informed consent was obtained, the patient brought to the endoscopy suite, placed in the left lateral decubitus position. IV sedation was performed by the VP ANALYSIS. The scope was then inserted and up about 30 cm, noted a lot of diverticula and a mass with possible some purulent fluid. Able to actually get the scope up past this area up and up to the splenic flexure. There is some liquid fecal material in here. A picture was taken and then withdrew back to this area, did a couple biopsies of this mass and then slowly withdrew the scope down into the rectal vault. Retroflex rectal vault some and saw some internal hemorrhoids, took a picture of this and then removed the scope. The patient tolerated the procedure and transferred recovery room in stable condition. Job ID: [id number] Dictated Date: 05/24/2016 12:04:08 [facility] Director Date: 05/26/2016 07:15:49 / ray
[2016-05-26] MEDS: fentaNYL INJECTION 100 MCG/2 ML AMP IV PRN ×3 (07:45→19:02)
[2016-05-26 08:00] VITALS: BP 160/94
[2016-05-26] MEDS ORDERED: MULT-10 PO (09:30)
[2016-05-26] MEDS ORDERED: LISI-552 PO (09:30)
[2016-05-26] MEDS: lisINopril 20 MG (ZESTRIL) TAB PO SCH (11:00)
[2016-05-26] MEDS: POLYETHYLENE GLYCOL 17 GM (MIRALAX) PACK PO SCH ×3 (11:00→20:52)
[2016-05-26 12:00] VITALS: BP 141/80
--- NOTE | 2016-05-26 12:14 | Progress Note ---
Subjective Subjective/Events-last exam Pt seen and examined. He is ambulating in the schneider. Unable to take Mg Citrate , caused him to vomit. He is doing ok with Miralax, thinks he is almost clean, but had "brown" BM this am. Denies abd pain. Denies nausea and vomiting, except with prep to clean his bowels. Review of Systems General: No Chills, No Night Sweats HEENT: No Head Aches, No Visual Changes Pulmonary: No Dyspnea, No Cough Cardiovascular: No: Chest Pain Gastrointestinal: : VomitingNo: Abdominal Pain, Nausea Genitourinary: No Dysuria, No Frequency Objective Exam Vital Signs Date Time Temp Pulse Resp B/P Pulse Ox O2 Delivery O2 Flow Rate FiO2 05/26/16 08:00 97.4 76 24 160/94 96 Room Air 05/26/16 04:00 97.8 68 18 168/96 97 Room Air 05/26/16 00:00 97.8 75 18 140/66 96 Room Air 05/25/16 20:00 98.2 71 20 170/90 96 Room Air 05/25/16 20:00 Room Air 05/25/16 16:00 98.5 73 22 174/96 99 Room Air I & O 05/26/16 07:00 Intake Total 2480 ml Output Total 8050 ml Balance -5570 ml Capillary Refill : Less Than 3 Seconds General Appearance: No Apparent Distress WD/WN Obese HEENT: PERRL/EOMI Pharynx Normal Neck: Supple Respiratory: Lungs Clear Normal Breath Sounds No Accessory Muscle Use No Respiratory Distress Cardiovascular: Regular Rate, Rhythm No Gallop No Murmur Normal Peripheral Pulses Gastrointestinal: soft no organomegaly no pulsatile mass abnormal bowel sounds (??hyperactive) distended (mildly, this may just be his normal) tenderness (in LLQ with deep palpation) Extremity: Non Tender No Calf Tenderness No Pedal Edema Neurologic/Psychiatric: Alert Oriented x3 No Motor/Sensory Deficits Normal Mood/Affect Skin: Normal Color Warm/Dry Results Lab Laboratory Tests 05/25/16 18:29: Glucometer 181H 05/26/16 01:14: Glucometer 217H 05/26/16 04:40: Anion Gap 10, BUN/Creatinine Ratio 4, Basophils # (Auto) 0.0, Basophils (%) ( Auto) 0, Blood Urea Nitrogen 4L, Calcium Level 8.3L, Carbon Dioxide Level 23, Chloride Level 106, Creatinine 0.89, Eosinophils # (Auto) 0.1, Eosinophils (%) ( Auto) 1, Estimat Glomerular Filtration Rate > 60, Glucose Level 190H, Hematocrit 39L, Hemoglobin 12.9L, Lymphocytes # (Auto) 2.1, Lymphocytes (%) ( Auto) 35, Magnesium Level 2.2, Mean Corpuscular Hemoglobin 28, Mean Corpuscular Hemoglobin Concent 33, Mean Corpuscular Volume 83, Mean Platelet Volume 9.9, Monocytes # (Auto) 0.6, Monocytes (%) (Auto) 10, Neutrophils # (Auto) 3.1, Neutrophils (%) (Auto) 53, Platelet Count 196, Potassium Level 3.7, Red Blood Count 4.68, Red Cell Distribution Width 12.8, Sodium Level 139, White Blood Count 5.9 05/26/16 11:29: Glucometer 224H Assessment/Plan Assessment/Plan Assessment/Plan Sigmoid Mass causing stricture and therefore partial Large bowel obstruction -Plan is to take pt for Hand assisted Lap Sigmoid colon resection. We do not have pathology on mass yet, but he will need resection whether its benign or cancer. Discussed the procedure with the pt all risks and benefits ; including but not limited to pain, bleeding, infection, scar and possible damage to bowel with need for colostomy. We also discussed the up to 1% leak rate after anastomosis. In addition Unfortunately he was not clear this AM; therefore will postpone surgery until Thursday. I am giving him three doses of Miralax today and will also write for Emycin and Neomycin base for bowel prep. All qustions answered to his satisfaction. DM- uncontrolled, pt needs to do better job with diet and his meds. Medicine will help control his blood sugar. Elevated WBC - resolved now with IV ABX Clinical Quality Measures DVT/VTE Risk/Contraindication: Risk Factor Score Per Nursin RFS Level Per Nursing on Admit: 3=High SUMMER CERDA DO May 26, 2016 12:14
[2016-05-26] MEDS ORDERED: NEOMYCIN SULFATE 500 MG TAB PO SCH (13:00)
[2016-05-26] MEDS: ONDANSETRON 4 MG/2 ML (SDV) Z0FRAN IV PRN ×2 (15:00→18:36)
[2016-05-26] MEDS: NEOMYCIN SULFATE 500 MG TAB PO SCH ×3 (15:00→22:36)
[2016-05-26] MEDS: ERYTHROMYCIN BASE 250 MG TAB/CAP (NON-FORMULARY) PO SCH ×3 (15:01→22:35)
[2016-05-26 16:00] VITALS: BP 164/84
[2016-05-26] MEDS ORDERED: ONDANSETRON 4 MG/2 ML (SDV) Z0FRAN IVP NR (18:45)
[2016-05-26] MEDS ORDERED: PROMETHAZINE INJ 25 MG/ML (PHENERGAN) AMP IVP PRN (18:45)
[2016-05-26 20:00] VITALS: BP 174/87
[2016-05-26] MEDS: LEVOFLOXACIN 500 MG/D5W 100 ML (PRE-MIX) IV SCH (20:52)
[2016-05-27 00:35] VITALS: BP 141/78
[2016-05-27] MEDS: metroNIDAZOLE 500 MG/100 ML IVPB (PRE-MIX) IV SCH ×3 (00:35→12:20)
[2016-05-27] MEDS: inSUlin ASPART (NovoLOG) 1 UNIT/0.01 ML (CHARGE PER UNIT) SC SCH ×5 (00:47→23:59)
[2016-05-27] MEDS: 1/2 NS IV SOLUTION 1,000 ML IV SCH ×4 (03:59→21:17)
[2016-05-27 04:00] VITALS: BP 148/87
[2016-05-27] MEDS: CATHETER FLUSH 10 ML SYR IV SCH ×2 (06:00→21:17)
[2016-05-27 08:00] VITALS: BP 160/94
[2016-05-27] MEDS: lisINopril 20 MG (ZESTRIL) TAB PO SCH (09:00)
[2016-05-27] MEDS ORDERED: LIDOCAINE/EPI 1%-1:100,000 (XYLOCAINE) 20ML ONE ×2 (10:18→13:09)
[2016-05-27] MEDS ORDERED: ONDANSETRON 4 MG/2 ML (SDV) Z0FRAN ONE (11:53)
[2016-05-27] MEDS ORDERED: LACTATED RINGERS 1,000 ML IV ONE ×3 (11:53→15:11)
[2016-05-27] MEDS ORDERED: MIDAZOLAM 2 MG/2 ML (VERSED) VIAL ONE ×2 (11:53→12:16)
[2016-05-27] MEDS ORDERED: ROCURONIUM 50 MG/5 ML (ZEMURON) VIAL IV ONE ×2 (11:53→13:23)
[2016-05-27] MEDS ORDERED: SEVOFLURANE (ULTANE) 15 ML INHAL SOLN ONE ×2 (11:53→15:25)
[2016-05-27] MEDS ORDERED: proPOfol 200 MG/20 ML (DIPRIVAN) VIAL IV ONE ×2 (11:53→12:52)
[2016-05-27] MEDS ORDERED: fentaNYL INJECTION 250 MCG/5 ML AMP ONE (11:54)
--- NOTE | 2016-05-27 12:03 | Progress Note ---
Subjective Subjective/Events-last exam Pt seen and examined, plan to go to OR today. He states still had a brown BM. Review of Systems Gastrointestinal: : Abdominal PainNo: Nausea, Vomiting Objective Exam Vital Signs Date Time Temp Pulse Resp B/P Pulse Ox O2 Delivery O2 Flow Rate FiO2 05/27/16 04:00 96.7 61 18 148/87 95 Room Air 05/27/16 00:35 98.0 67 18 141/78 94 05/26/16 20:15 Room Air 05/26/16 20:00 98.1 74 20 174/87 95 Room Air 05/26/16 16:00 97.3 66 20 164/84 97 Room Air 05/26/16 12:00 98.0 68 24 141/80 98 Room Air I & O 05/27/16 07:00 Intake Total 3240 ml Output Total 5250 ml Balance -2010 ml Capillary Refill : Less Than 3 Seconds General Appearance: No Apparent Distress WD/WN Obese HEENT: PERRL/EOMI Pharynx Normal Neck: Supple Respiratory: Lungs Clear Normal Breath Sounds No Accessory Muscle Use No Respiratory Distress Cardiovascular: Regular Rate, Rhythm No Gallop No Murmur Normal Peripheral Pulses Gastrointestinal: soft no organomegaly no pulsatile mass abnormal bowel sounds (??hyperactive) distended (mildly, this may just be his normal) tenderness (in LLQ with deep palpation) Extremity: Non Tender No Calf Tenderness No Pedal Edema Neurologic/Psychiatric: Alert Oriented x3 No Motor/Sensory Deficits Normal Mood/Affect Skin: Normal Color Warm/Dry Results Lab Laboratory Tests 05/26/16 18:58: Glucometer 214H 05/27/16 00:38: Glucometer 212H 05/27/16 06:27: Glucometer 190H Assessment/Plan Assessment/Plan Assessment/Plan 05/27 Pt still had brown BM, but did Yady's prep (ABX) and I am not sure 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 I think the stricture is just too tight. Will take him today and may need to decompress colon, this may increase risk of leak; however, leaving it dilated is probably worse. Discussed the risks with pt; he agrees today should be the day. Sigmoid Mass causing stricture and therefore partial Large bowel obstruction -Plan is to take pt for Hand assisted Lap Sigmoid colon resection. We do not have pathology on mass yet, but he will need resection whether its benign or cancer. Discussed the procedure with the pt all risks and benefits ; including but not limited to pain, bleeding, infection, scar and possible damage to bowel with need for colostomy. We also discussed the up to 1% leak rate after anastomosis. All qustions answered to his satisfaction. DM- uncontrolled, pt needs to do better job with diet and his meds. Medicine will help control his blood sugar. Elevated WBC - resolved now with IV ABX Clinical Quality Measures DVT/VTE Risk/Contraindication: Risk Factor Score Per Nursin RFS Level Per Nursing on Admit: 3=High SUMMER CERDA DO May 27, 2016 12:03
[2016-05-27] MEDS: LACTATED RINGERS 1,000 ML IV PRN ×3 (12:10→14:15)
[2016-05-27] MEDS ORDERED: ONDANSETRON 4 MG/2 ML (SDV) Z0FRAN IV PRN (12:30)
[2016-05-27] MEDS ORDERED: EPIDURAL (SUFENTA 0.6MCG/ML BUPIVA 0.125%) 100 ML BAG EPI SCH (12:30)
[2016-05-27] MEDS ORDERED: NALOXONE 0.4 MG/ML 1 ML (NARCAN) VIAL IV PRN (12:30)
[2016-05-27] MEDS ORDERED: metroNIDAZOLE 500MG/100ML IVPB 100 ML ONE (13:29)
[2016-05-27] MEDS ORDERED: ceFAZolin 1,000 MG (ANCEF) VIAL ONE (13:29)
[2016-05-27] MEDS ORDERED: ceFAZolin INJECTION 1,000 MG in NS (IVPB) 50 ML IV ONE (13:45)
[2016-05-27] MEDS ORDERED: ceFAZolin 2 GM/50 ML NS 50 ML IV ONE (13:45)
[2016-05-27] MEDS ORDERED: BUPIVACAINE 0.25% 30 ML (SENSORCAINE) VIAL ONE (15:05)
[2016-05-27] MEDS ORDERED: NEOSTIGMINE (BLOXIVERZ ) 1 MG/1ML 10 ML VIAL ONE (15:11)
[2016-05-27] MEDS ORDERED: GLYCOPYRROLATE 0.2 MG/ML (ROBINUL) 2 ML VIAL ONE (15:11)
--- NOTE | 2016-05-27 15:18 | Progress Note-Post Operative ---
Post-Operative Progess Note Assistant Null Pre-Operative Diagnosis Possible large bowel obstruction Post-Operative Diagnosis Sigmoid Colon mass pending pathology Post-Op Procedure Note Date of Procedure: May 27, 2016 Name of Procedure: Hand assisted Lap Sigmoid colon resection Anesthesia Type GET Estimated blood loss (mL): appx 100ml Packing: none Specimen(s) collected sigmoid colon SUMMER CERDA DO May 27, 2016 15:18
[2016-05-27] MEDS ORDERED: ONDANSETRON 4 MG/2 ML (SDV) Z0FRAN IVP PRN (15:45)
[2016-05-27] MEDS ORDERED: MEPERIDINE (DEMEROL) INJ 50 MG/ML IVP PRN (15:45)
[2016-05-27] MEDS ORDERED: morphine INJ 10 MG/ML 1ML (SYR OR VIAL) IVP PRN (15:45)
[2016-05-27] MEDS ORDERED: PROMETHAZINE INJ 25 MG/ML (PHENERGAN) AMP IVP PRN (15:45)
[2016-05-27 16:30] VITALS: BP 138/69
[2016-05-27] MEDS: fentaNYL INJECTION 100 MCG/2 ML AMP IV PRN ×2 (18:28→22:17)
[2016-05-27 20:00] VITALS: BP 151/72
[2016-05-27] MEDS: POLYETHYLENE GLYCOL 17 GM (MIRALAX) PACK PO SCH (20:38)
[2016-05-27] MEDS: LEVOFLOXACIN 500 MG/D5W 100 ML (PRE-MIX) IV SCH (20:39)
[2016-05-27] MEDS: metroNIDAZOLE 500MG/100ML IVPB 100 ML IV SCH (22:08)
[2016-05-27] MEDS: EPIDURAL (SUFENTA 0.6MCG/ML BUPIVA 0.125%) 100 ML BAG EPI SCH (23:51)
[2016-05-28 00:05] VITALS: BP 129/82
[2016-05-28] MEDS ORDERED: ACETAMINOPHEN 325 MG TABLET/CAPLET (TYLENOL) ONE (00:11)
[2016-05-28] MEDS ORDERED: ACETAMINOPHEN 500 MG TAB (TYLENOL) PO ONE (00:15)
[2016-05-28] MEDS: 1/2 NS IV SOLUTION 1,000 ML IV SCH (03:30)
[2016-05-28 04:00] VITALS: BP 151/88
[2016-05-28] MEDS: metroNIDAZOLE 500MG/100ML IVPB 100 ML IV SCH (05:48)
[2016-05-28] MEDS: inSUlin ASPART (NovoLOG) 1 UNIT/0.01 ML (CHARGE PER UNIT) SC SCH ×3 (05:48→18:00)
[2016-05-28] MEDS: CATHETER FLUSH 10 ML SYR IV SCH ×3 (05:51→22:00)
[2016-05-28 08:04] VITALS: BP 135/84
[2016-05-28 08:25] LABS: BASOPHILS % (AUTO) 0 % (0-10); EOSINOPHILS % (AUTO) 0 % (0-10); LYMPHOCYTES # (AUTO) 1.6 X 10^3 (1.0-4.0); LYMPHOCYTES % (AUTO) 21 % (12-44); MEAN CORPUSCULAR HEMOGLOBIN 28 PG (25-34); MEAN CORPUSCULAR HGB CONC 33 G/DL (32-36); MEAN CORPUSCULAR VOLUME 84 FL (80-99); MEAN PLATELET VOLUME 9.7 FL (7.4-10.4); MONOCYTES % (AUTO) 12 % (0-12); NEUTROPHILS # (AUTO) 5.3 X 10^3 (1.8-7.8); NEUTROPHILS % (AUTO) 67 % (42-75); PLATELET COUNT 200 10^3/uL (130-400); RED BLOOD COUNT 4.55 10^6/uL (4.35-5.85); RED CELL DISTRIBUTION WIDTH 12.8 % (10.0-14.5); WHITE BLOOD COUNT 7.9 10^3/uL (4.3-11.0)
[2016-05-28] MEDS: lisINopril 20 MG (ZESTRIL) TAB PO SCH (08:35)
[2016-05-28] MEDS: ACETAMINOPHEN 325 MG TABLET/CAPLET (TYLENOL) PO PRN ×3 (08:36→22:45)
[2016-05-28 08:46] LABS: ALANINE AMINOTRANSFERASE 29 U/L (0-55); ALBUMIN 3.4 G/DL (3.2-4.5); ANION GAP 11 MMOL/L (5-14); ASPARTATE AMINO TRANSFERASE 21 U/L (5-34); BILIRUBIN,TOTAL 0.5 MG/DL (0.1-1.0); BLOOD UREA NITROGEN 5 MG/DL (7-18); BUN/CREATININE RATIO 5; CALCIUM 7.9 MG/DL (8.5-10.1); CARBON DIOXIDE 23 MMOL/L (21-32); CHLORIDE 103 MMOL/L (98-107); CREATININE SERUM 1.06 MG/DL (0.60-1.30); GFR ESTIMATED > 60; GLUCOSE 174 MG/DL (70-105); POTASSIUM 3.3 MMOL/L (3.6-5.0); SODIUM 137 MMOL/L (135-145)
[2016-05-28] MEDS: EPIDURAL (SUFENTA 0.6MCG/ML BUPIVA 0.125%) 100 ML BAG EPI SCH ×2 (10:00→20:18)
--- NOTE | 2016-05-28 10:11 | Anesthesia-General Post-Op ---
General Patient Condition Mental Status/LOC: Same as Preop Cardiovascular: Satisfactory Nausea/Vomiting: Absent Respiratory: Satisfactory Pain: Controlled Complications: Absent Post Op Complications Complications None Follow Up Care/Instructions Patient Instructions None needed. Anesthesia/Patient Condition Patient Condition Patient is doing well, no complaints, stable vital signs, no apparent adverse anesthesia problems. No complications reported per nursing. D/C home per [facility] Criteria: No CARL ORTIZ CRNA May 28, 2016 10:11
--- NOTE | 2016-05-28 10:20 | Progress Note-Standard ---
Standard Progress Note Final Diagnosis Pt resting, epidural infusion running. Pt complaining of burning sensation in legs and requested epidural removed. The nurses called Dr. Lowe and he requested epidural infusion to continue unless pt was adamant about removal, which he was not. Instructed pt and nurses to call if any questions or concerns regarding epidural infusion. CARL ORTIZ CRNA May 28, 2016 10:20
--- NOTE | 2016-05-28 11:25 | Progress Note-Hospitalist ---
Progress Note HPI/CC on Admission this is a 46-year-old white male with history of type II diabetes. He was admitted yesterday with partial bowel obstruction. CT showed evidence of a mass in the sigmoid colon concerning for malignancy. He is currently just post flexible sigmoidoscopy by Dr. Lowe. [place] of nausea and abdominal cramping and pain. After review of the scope with Dr. Lowe this looks most likely to be an inflammatory mass from diverticulitis. His plan is to continue clear liquids throughout the weekend and then surgical resection Thursday or Thursday. Progress Notes/Assess & Plan Date Seen 05/28/16 Diagonsis/Assessment & Plan Chart Review: Underwent sigmoid colon resection due to mass causing large bowel obstruction. Max fever 101.3 WBC 7.9 Hgb 12.6 K+ 3.3 Pathology focal active colitis negative for CA powder operator: RN has no requests at this time. Patient Interview: Pt states that he feels stable. Pt states that his bowels are very active. Physical exam stable. Pt unable to sit up in bed during exam. Pt states that he uses chewing tobacco. Pt has been using IS. Low-grade fever, pleasant, oriented 3, much improved clinically Regular rate and rhythm, clear to auscultation bilaterally No edema Assessment: Large bowel obstruction apparently due to colitis as source of obstruction status post resection Oral tobacco use Postop fever hypertension Plan: Dr. Lowe will see pt Monitor closely due to recent surgery incentive spirometer Monitor fever Scribed by Niles Moss under the direct supervision of Dr. Zapata. NIHARIKA ZAPATA DO May 28, 2016 11:25
--- NOTE | 2016-05-28 11:54 | Progress Note ---
Subjective Subjective/Events-last exam Pt seen and examined. States he "shit like a goose last night". Pain is controlled, but he complains that epidural is causing burning and numbness in left leg. Denies nausea and vomiting. Review of Systems General: Night Sweats HEENT: Head Aches Pulmonary: No Cough Cardiovascular: No: Chest Pain Gastrointestinal: No: Nausea, Vomiting Objective Exam Vital Signs Date Time Temp Pulse Resp B/P Pulse Ox O2 Delivery O2 Flow Rate FiO2 05/28/16 09:10 99.5 05/28/16 08:36 100.8 05/28/16 08:04 100.8 88 20 135/84 Room Air 05/28/16 04:00 98.3 92 20 151/88 94 Room Air 05/28/16 02:24 99.3 05/28/16 01:11 99.7 05/28/16 01:11 99.7 05/28/16 00:24 101.3 05/28/16 00:05 101.3 103 20 129/82 94 Room Air 05/27/16 20:40 Room Air 05/27/16 20:00 99.4 84 18 151/72 98 Room Air 05/27/16 16:30 98.0 72 20 138/69 99 Room Air I & O 05/28/16 07:00 Intake Total 3400 ml Output Total 2750 ml Balance 650 ml Capillary Refill : Less Than 3 Seconds General Appearance: WD/WN Mild Distress Obese Other (pt is slightly diaphoretic) HEENT: PERRL/EOMI Neck: Supple Respiratory: Lungs Clear Normal Breath Sounds No Accessory Muscle Use No Respiratory Distress Cardiovascular: Regular Rate, Rhythm No Gallop No Murmur Normal Peripheral Pulses Gastrointestinal: softNo distended Extremity: Non Tender No Calf Tenderness No Pedal Edema Results Lab Laboratory Tests 05/27/16 18:14: Glucometer 196H 05/27/16 23:56: Glucometer 181H 05/28/16 05:45: Glucometer 187H 05/28/16 08:16: Alanine Aminotransferase (ALT/SGPT) 29, Albumin 3.4, Alkaline Phosphatase 49, Anion Gap 11, Aspartate Amino Transf (AST/SGOT) 21, BUN/Creatinine Ratio 5, Basophils # (Auto) 0.0, Basophils (%) (Auto) 0, Blood Urea Nitrogen 5L, Calcium Level 7.9L, Carbon Dioxide Level 23, Chloride Level 103, Creatinine 1.06, Eosinophils # (Auto) 0.0, Eosinophils (%) (Auto) 0, Estimat Glomerular Filtration Rate > 60, Glucose Level 174H, Hematocrit 38L, Hemoglobin 12.6L, Lymphocytes # (Auto) 1.6, Lymphocytes (%) (Auto) 21, Mean Corpuscular Hemoglobin 28, Mean Corpuscular Hemoglobin Concent 33, Mean Corpuscular Volume 84, Mean Platelet Volume 9.7, Monocytes # (Auto) 1.0, Monocytes (%) (Auto) 12, Neutrophils # (Auto) 5.3, Neutrophils (%) (Auto) 67, Platelet Count 200, Potassium Level 3.3L, Red Blood Count 4.55, Red Cell Distribution Width 12.8, Sodium Level 137, Total Bilirubin 0.5, Total Protein 6.0L, White Blood Count 7.9 Microbiology 05/25/16 MRSA Screen - Final, Complete MRSA not isolated Assessment/Plan Assessment/Plan Assessment/Plan S/P Hand Asst Lap Sigmoid resection - await pathology Continue ice chips only. Pt must ambulate and use IS. Bowers d/c'd. IVF LR Hypokalemia -will replace and recheck with labs in am DM- mostly controlled now on meds Fever - given Tylenol will monitor VTE prophylaxis is contraindicated because of epidural. Clinical Quality Measures DVT/VTE Risk/Contraindication: Risk Factor Score Per Nursin RFS Level Per Nursing on Admit: 3=High SUMMER CERDA DO May 28, 2016 11:54
[2016-05-28 12:00] VITALS: BP 117/63
[2016-05-28] MEDS: POTASSIUM CL 10MEQ/50ML IVPB 50 ML IV SCH ×2 (12:46→17:00)
[2016-05-28] MEDS: LACTATED RINGERS 1,000 ML IV SCH ×3 (12:46→20:18)
[2016-05-28 16:00] VITALS: BP 142/80
[2016-05-28 20:00] VITALS: BP 131/63
[2016-05-29] MEDS: inSUlin ASPART (NovoLOG) 1 UNIT/0.01 ML (CHARGE PER UNIT) SC SCH ×4 (00:43→17:37)
[2016-05-29] MEDS: LACTATED RINGERS 1,000 ML IV SCH ×3 (03:58→20:10)
[2016-05-29 04:00] VITALS: BP 140/80
[2016-05-29] MEDS: CATHETER FLUSH 10 ML SYR IV SCH ×3 (05:36→22:00)
[2016-05-29] MEDS: EPIDURAL (SUFENTA 0.6MCG/ML BUPIVA 0.125%) 100 ML BAG EPI SCH ×2 (05:36→14:09)
[2016-05-29 05:52] LABS: BASOPHILS % (AUTO) 0 % (0-10); EOSINOPHILS # (AUTO) 0.1 10^3/uL (0.0-0.3); EOSINOPHILS % (AUTO) 1 % (0-10); LYMPHOCYTES # (AUTO) 1.7 X 10^3 (1.0-4.0); LYMPHOCYTES % (AUTO) 18 % (12-44); MEAN CORPUSCULAR HEMOGLOBIN 28 PG (25-34); MEAN CORPUSCULAR HGB CONC 33 G/DL (32-36); MEAN CORPUSCULAR VOLUME 84 FL (80-99); MEAN PLATELET VOLUME 9.8 FL (7.4-10.4); MONOCYTES # (AUTO) 1.3 X 10^3 (0.0-1.0); MONOCYTES % (AUTO) 13 % (0-12); NEUTROPHILS # (AUTO) 6.4 X 10^3 (1.8-7.8); NEUTROPHILS % (AUTO) 68 % (42-75); PLATELET COUNT 188 10^3/uL (130-400); RED BLOOD COUNT 4.28 10^6/uL (4.35-5.85); WHITE BLOOD COUNT 9.5 10^3/uL (4.3-11.0)
[2016-05-29 06:09] LABS: ALANINE AMINOTRANSFERASE 25 U/L (0-55); ALBUMIN 3.2 G/DL (3.2-4.5); ANION GAP 11 MMOL/L (5-14); ASPARTATE AMINO TRANSFERASE 17 U/L (5-34); BILIRUBIN,TOTAL 0.4 MG/DL (0.1-1.0); BLOOD UREA NITROGEN 4 MG/DL (7-18); BUN/CREATININE RATIO 5; CARBON DIOXIDE 20 MMOL/L (21-32); CHLORIDE 105 MMOL/L (98-107); CREATININE SERUM 0.81 MG/DL (0.60-1.30); GFR ESTIMATED > 60; GLUCOSE 189 MG/DL (70-105); POTASSIUM 3.1 MMOL/L (3.6-5.0); SODIUM 136 MMOL/L (135-145); TOTAL PROTEIN 5.9 G/DL (6.4-8.2)
[2016-05-29 08:00] VITALS: BP 162/82
[2016-05-29] MEDS: lisINopril 20 MG (ZESTRIL) TAB PO SCH (08:21)
--- NOTE | 2016-05-29 11:52 | Progress Note-Hospitalist ---
Progress Note HPI/CC on Admission this is a 46-year-old white male with history of type II diabetes. He was admitted yesterday with partial bowel obstruction. CT showed evidence of a mass in the sigmoid colon concerning for malignancy. He is currently just post flexible sigmoidoscopy by Dr. Lowe. Paden of nausea and abdominal cramping and pain. After review of the scope with Dr. Lowe this looks most likely to be an inflammatory mass from diverticulitis. His plan is to continue clear liquids throughout the weekend and then surgical resection Thursday or Thursday. Progress Notes/Assess & Plan Date Seen 05/29/16 Diagonsis/Assessment & Plan Chart Review: Max fever 101.6 BP 162/82 WBC 9.5 Hgb 11.9 K+ 3.1 Patient Interview: Pt states that he has not yet eaten, but he feels better today. Physical exam stable. Pt has been ambulating. Pt states that his incision is tender, but he otherwise feels good. Low-grade fever, pleasant, oriented 3, much improved clinically Regular rate and rhythm, clear to auscultation bilaterally No edema Assessment: Large bowel obstruction apparently due to colitis as source of obstruction status post resection Oral tobacco use Postop fever hypertension Plan: Monitor closely due to recent surgery incentive spirometer Scribed by Niles Moss under the direct supervision of Dr. Zapata. NIHARIKA ZAPATA DO May 29, 2016 11:52
[2016-05-29 12:00] VITALS: BP 141/78
--- NOTE | 2016-05-29 13:18 | Progress Note ---
Subjective Subjective/Events-last exam Pt seen and examined, looks better than yesterday. He states minimal pain at incision, but that is it. Denies nausea/vomiting, asking if he can eat more. +BM Review of Systems General: No Night Sweats, Fatigue HEENT: No Head Aches Pulmonary: No Cough Cardiovascular: No: Chest Pain Gastrointestinal: No: Abdominal Pain, Nausea, Vomiting Objective Exam Vital Signs Date Time Temp Pulse Resp B/P Pulse Ox O2 Delivery O2 Flow Rate FiO2 05/29/16 10:10 97 05/29/16 08:00 99.5 95 22 162/82 95 Room Air 05/29/16 06:38 93 05/29/16 04:00 99.4 91 20 140/80 94 Room Air 05/29/16 02:26 96 05/28/16 23:25 100.4 05/28/16 23:25 100.4 05/28/16 22:45 101.6 05/28/16 22:23 101.6 05/28/16 22:10 97 05/28/16 20:20 Room Air 05/28/16 20:00 100.9 92 20 131/63 96 Room Air 05/28/16 18:53 100.8 05/28/16 18:47 96 05/28/16 16:57 101.6 05/28/16 16:00 101.5 101 20 142/80 98 Room Air 05/28/16 15:45 94 I & O 05/29/16 07:00 Intake Total 2000 ml Output Total 901 ml Balance 1099 ml Capillary Refill : Less Than 3 Seconds General Appearance: No Apparent Distress WD/WN Obese HEENT: PERRL/EOMI Pharynx Normal Neck: Supple Respiratory: Lungs Clear Normal Breath Sounds No Accessory Muscle Use No Respiratory Distress Cardiovascular: Regular Rate, Rhythm No Gallop No Murmur Normal Peripheral Pulses Gastrointestinal: softNo distended, other (incisions are c/d/i) Extremity: Non Tender No Calf Tenderness No Pedal Edema Results Lab Laboratory Tests 05/28/16 18:47: Glucometer 167H 05/28/16 23:50: Glucometer 175H 05/29/16 05:20: Glucometer 212H 05/29/16 05:35: Alanine Aminotransferase (ALT/SGPT) 25, Albumin 3.2, Alkaline Phosphatase 47, Anion Gap 11, Aspartate Amino Transf (AST/SGOT) 17, BUN/Creatinine Ratio 5, Basophils # (Auto) 0.0, Basophils (%) (Auto) 0, Blood Urea Nitrogen 4L, Calcium Level 8.0L, Carbon Dioxide Level 20L, Chloride Level 105, Creatinine 0.81, Eosinophils # (Auto) 0.1, Eosinophils (%) (Auto) 1, Estimat Glomerular Filtration Rate > 60, Glucose Level 189H, Hematocrit 36L, Hemoglobin 11.9L, Lymphocytes # (Auto) 1.7, Lymphocytes (%) (Auto) 18, Mean Corpuscular Hemoglobin 28, Mean Corpuscular Hemoglobin Concent 33, Mean Corpuscular Volume 84, Mean Platelet Volume 9.8, Monocytes # (Auto) 1.3H, Monocytes (%) (Auto) 13H , Neutrophils # (Auto) 6.4, Neutrophils (%) (Auto) 68, Platelet Count 188, Potassium Level 3.1L, Red Blood Count 4.28L, Red Cell Distribution Width 13.0, Sodium Level 136, Total Bilirubin 0.4, Total Protein 5.9L, White Blood Count 9.5 05/29/16 11:44: Glucometer 173H Microbiology 05/25/16 MRSA Screen - Final, Complete MRSA not isolated Assessment/Plan Assessment/Plan Assessment/Plan S/P Hand Asst Lap Sigmoid resection - await pathology Start clear liquid diet - take it slow. Pt must ambulate and use IS. Urinating without avendaño, will decrease IVF Hypokalemia -will continue to replace with orals now and recheck with labs in am DM- mostly controlled now on meds Fever - improving, Tylenol as needed. VTE prophylaxis is contraindicated because of epidural. Clinical Quality Measures DVT/VTE Risk/Contraindication: Risk Factor Score Per Nursin RFS Level Per Nursing on Admit: 3=High SUMMER CERDA DO May 29, 2016 13:18
--- NOTE | 2016-05-29 13:38 | Progress Note-Standard ---
Standard Progress Note Progress Notes/Assess & Plan Progress/Assessment & Plan Patient doing well, rate to 8 cc/hr DAVID,RODERICK Yen CRNA May 29, 2016 13:38
[2016-05-29] MEDS: ACETAMINOPHEN 325 MG TABLET/CAPLET (TYLENOL) PO PRN (14:23)
[2016-05-29 16:59] VITALS: BP 138/81
[2016-05-29] MEDS: KCL 20 MEQ POWDER FOR ORAL SOLUTION PO SCH (17:18)
[2016-05-29 20:00] VITALS: BP 159/84
[2016-05-30] MEDS: inSUlin ASPART (NovoLOG) 1 UNIT/0.01 ML (CHARGE PER UNIT) SC SCH ×3 (00:10→11:52)
[2016-05-30] MEDS: fentaNYL INJECTION 100 MCG/2 ML AMP IV PRN (00:10)
[2016-05-30 00:45] VITALS: BP 154/84
[2016-05-30] MEDS: EPIDURAL (SUFENTA 0.6MCG/ML BUPIVA 0.125%) 100 ML BAG EPI SCH (03:09)
[2016-05-30 04:35] VITALS: BP 143/79
[2016-05-30] MEDS: CATHETER FLUSH 10 ML SYR IV SCH (06:00)
[2016-05-30] MEDS: KCL 20 MEQ POWDER FOR ORAL SOLUTION PO SCH (06:17)
[2016-05-30 07:11] LABS: BASOPHILS % (AUTO) 0 % (0-10); EOSINOPHILS # (AUTO) 0.3 10^3/uL (0.0-0.3); EOSINOPHILS % (AUTO) 3 % (0-10); LYMPHOCYTES # (AUTO) 1.6 X 10^3 (1.0-4.0); LYMPHOCYTES % (AUTO) 22 % (12-44); MEAN CORPUSCULAR HEMOGLOBIN 28 PG (25-34); MEAN CORPUSCULAR HGB CONC 33 G/DL (32-36); MEAN CORPUSCULAR VOLUME 84 FL (80-99); MEAN PLATELET VOLUME 9.5 FL (7.4-10.4); MONOCYTES # (AUTO) 0.8 X 10^3 (0.0-1.0); MONOCYTES % (AUTO) 11 % (0-12); NEUTROPHILS # (AUTO) 4.7 X 10^3 (1.8-7.8); NEUTROPHILS % (AUTO) 63 % (42-75); PLATELET COUNT 188 10^3/uL (130-400); RED BLOOD COUNT 4.27 10^6/uL (4.35-5.85); WHITE BLOOD COUNT 7.4 10^3/uL (4.3-11.0)
[2016-05-30 07:32] LABS: ALANINE AMINOTRANSFERASE 24 U/L (0-55); ALBUMIN 3.2 G/DL (3.2-4.5); ANION GAP 12 MMOL/L (5-14); ASPARTATE AMINO TRANSFERASE 17 U/L (5-34); BILIRUBIN,TOTAL 0.3 MG/DL (0.1-1.0); BLOOD UREA NITROGEN 3 MG/DL (7-18); BUN/CREATININE RATIO 4; CALCIUM 8.2 MG/DL (8.5-10.1); CARBON DIOXIDE 23 MMOL/L (21-32); CHLORIDE 104 MMOL/L (98-107); GFR ESTIMATED > 60; GLUCOSE 181 MG/DL (70-105); SODIUM 139 MMOL/L (135-145); TOTAL PROTEIN 6.4 G/DL (6.4-8.2)
[2016-05-30 08:17] VITALS: BP 138/82
[2016-05-30] MEDS: lisINopril 20 MG (ZESTRIL) TAB PO SCH (09:11)
--- NOTE | 2016-05-30 10:49 | Progress Note ---
Subjective Subjective/Events-last exam Pt seen and examined, tolerating diet with BM. Urinating without difficulty. Objective Exam Vital Signs Date Time Temp Pulse Resp B/P Pulse Ox O2 Delivery O2 Flow Rate FiO2 05/30/16 10:38 97 05/30/16 08:17 98.5 80 20 138/82 99 Nasal Cannula 2.50 05/30/16 07:32 96 05/30/16 04:35 98.5 79 22 143/79 96 Nasal Cannula 2.50 05/30/16 02:47 97 05/30/16 00:45 98.0 86 20 154/84 97 Room Air 05/29/16 23:04 93 05/29/16 20:10 Room Air 05/29/16 20:00 98.9 87 20 159/84 94 Room Air 05/29/16 19:07 96 05/29/16 16:59 99.4 88 19 138/81 96 Room Air 05/29/16 15:00 98.5 05/29/16 14:23 99.9 05/29/16 13:41 95 05/29/16 12:00 99.1 98 20 141/78 98 Room Air I & O 05/30/16 07:00 Intake Total 3230 ml Output Total 1300 ml Balance 1930 ml Capillary Refill : Less Than 3 Seconds General Appearance: No Apparent Distress WD/WN Obese Respiratory: Lungs Clear Normal Breath Sounds Cardiovascular: Regular Rate, Rhythm No Murmur Gastrointestinal: softNo distended, other (incisions are c/d/i. erythema and warmth at midline incision. removed 4 geno from base of incision, liquid hematoma came out, no purulence) Extremity: No Calf Tenderness No Pedal Edema Results Lab Laboratory Tests 05/29/16 11:44: Glucometer 173H 05/29/16 17:22: Glucometer 202H 05/30/16 00:05: Glucometer 176H 05/30/16 06:16: Glucometer 168H 05/30/16 07:08: Alanine Aminotransferase (ALT/SGPT) 24, Albumin 3.2, Alkaline Phosphatase 48, Anion Gap 12, Aspartate Amino Transf (AST/SGOT) 17, BUN/Creatinine Ratio 4, Basophils # (Auto) 0.0, Basophils (%) (Auto) 0, Blood Urea Nitrogen 3L, Calcium Level 8.2L, Carbon Dioxide Level 23, Chloride Level 104, Creatinine 0.80, Eosinophils # (Auto) 0.3, Eosinophils (%) (Auto) 3, Estimat Glomerular Filtration Rate > 60, Glucose Level 181H, Hematocrit 36L, Hemoglobin 11.9L, Lymphocytes # (Auto) 1.6, Lymphocytes (%) (Auto) 22, Mean Corpuscular Hemoglobin 28, Mean Corpuscular Hemoglobin Concent 33, Mean Corpuscular Volume 84, Mean Platelet Volume 9.5, Monocytes # (Auto) 0.8, Monocytes (%) (Auto) 11, Neutrophils # (Auto) 4.7, Neutrophils (%) (Auto) 63, Platelet Count 188, Potassium Level 3.0L, Red Blood Count 4.27L, Red Cell Distribution Width 13.0, Sodium Level 139, Total Bilirubin 0.3, Total Protein 6.4, White Blood Count 7.4 Microbiology 05/25/16 MRSA Screen - Final, Complete MRSA not isolated Assessment/Plan Assessment/Plan Assessment/Plan S/P Hand Asst Lap Sigmoid resection - D/C Home. tolerating diet, pain controlled, urinating Hypokalemia -will continue to replace with orals send home as outpt DM- pt must keep under control Superficial cellulitis - will send home with ABX to be safe Clinical Quality Measures DVT/VTE Risk/Contraindication: Risk Factor Score Per Nursin RFS Level Per Nursing on Admit: 3=High SUMMER CERDA DO May 30, 2016 10:49
[2016-05-30] MEDS ORDERED: CEPH-507 PO (10:53)
[2016-05-30] MEDS ORDERED: HYDR-3820 PO (10:53)
[2016-05-30] MEDS ORDERED: POTA20PA28 PO (10:53)
--- NOTE | 2016-05-30 10:56 | Discharge Inst-Surgical ---
Discharge Inst-Surgical Depart Medication/Instructions New, Converted or Re-Newed RX: RX Given to Pt/Family Patient Instructions Follow up Appt: Make appointment for 1 week. Instructions: No lifting greater than 10 pounds. No strenuous activity. May shower, no tub bath or soaking. Use incentive spirometer at home as directed. No Smoking. Ambulate 4-5 times daily, at least. Skin/Wound Care: May remove bandages. Gale will be removed at appointment Symptoms to Report: Appetite Changes, Extremity Discoloration, Numbness/Tingling, Swelling Increased , Bleeding Excessive, Eyesight Changes, Pain Increased, Urine Color Change, Constipation(Persistent), Fever over 101 degree F, Pain/Pressure in chest, Urinating Difficulty, Cough Up/Vomit Blood, Heart Beat Irreg/Pounding, Pain/ Pressure in jaw, Vaginal Bleeding Increase, Cramps in feet or legs, Lightheadedness, Pain/Pressure in shoulder, Diarrhea(Persistent), Memory Changes Suddenly, Questions/Concerns, Weight gain consecutive days, Dizziness/ Fainting, Nausea/Vomiting, Shortness of Breath, Weight gain over 2 pounds If questions or concerns contact your physician Or seek help at emergency department. Activity Activity as Tolerated: Yes Activity Instructions: Avoid Pulling & Pushing, Avoid Stress to Incision Driving Instructions: No Driving for 2 Weeks Diet Discharge Diet: Soft Diet, Low Residue If Any Problems/Questions/Issu: Contact Your Physician, Go to Emergency Room Skin/Wound Care Infection Signs and Symptoms: Increased Redness, Foul Odor of Wound, Increased Drainage, Increased Swelling, Temperature Above 101 F Stitches/[place]/Dermabond Dis: Care of SUMMER Youssef DO May 30, 2016 10:56
--- NOTE | 2016-05-30 12:29 | Anesthesia Pain Mgmt-Epidural ---
Anesthesia-Pain Mgmnt Epidural Pre-Procedure Chart Review and Risk/Benefits/Options Discussed Procedure Conditon: Good motor strength, Good pain control Catheter Removed: Catheter tip intact Date of Service: May 30, 2016 Time of Service: 12:26 Progress Note Patient reports good pain control from epidural. Patient c/o of some right leg tingling. Motor strength unchanged. Advised patient to notify anesthesia if persists or affects motor. Epidural removed with tip intact. RC ESCOBAR CRNA May 30, 2016 12:29
[2016-05-30] MEDS: LACTATED RINGERS 1,000 ML IV SCH (12:50)
[2016-05-30 15:40] VITALS: BP 138/82
--- NOTE | 2016-06-03 12:27 | OPERATIVE REPORT ---
PROCEDURE PHYSICIAN: SUMMER CERDA DATE OF PROCEDURE: 05/27/2016 PREOPERATIVE DIAGNOSIS: Sigmoid mass. PREOPERATIVE DIAGNOSIS: Sigmoid mass, pending pathology. PROCEDURE: Laparoscopic hand-assisted sigmoid colon resection. SURGEON: Dr. Cerda SEAMLESS TUBE DRAWER: Dr. Null. ANESTHESIA: General endotracheal tube. SPECIMEN: Left sigmoid colon BLOOD LOSS: Approximately 100 mL. FLUIDS: Per anesthesia. POSTOPERATIVE: Stable. INDICATIONS FOR THE PROCEDURE: The patient is a 46-year-old male who had mass in the sigmoid colon and was having trouble with bowel movements, almost a large bowel obstruction. Biopsy from colonoscopy came back as benign but needed to get this mass removed. FINDINGS: The patient had pretty stuck down left colon/sigmoid mass removed en bloc and sent to pathology. PROCEDURE NOTE: After informed consent was obtained. The patient had previous 3 days been on clear liquids attempting to clear him out and given a Kitchen prep. He was brought down to the operating room, placed on table in supine lithotomy position sterilely prepped and draped in the normal fashion. Local lidocaine was used to infiltrate the midline. Then made an incision with a number 10 blade, carried down through skin into subcutaneous tissue from just above the umbilicus to about the 2 inches below down through skin into subcutaneous tissue, deepened down subcutaneous tissue Bovie electrocautery down to the fascia. The fascia was incised with Bovie electrocautery and brought into the abdomen and then opened this to be approximately 3 inch incision. Placed a wound protector and then placed a gel port over this. Placed a camera through here and then made 2 more incisions on the right side of the abdomen one just above the umbilical height and one below that using local lidocaine, 11 blade for stab incision and then Versa Step system (placed 2 12 mm port) all done under direct visualization. At this point then placed my hand into the abdomen and started freeing up the sigmoid colon. It was very stuck on the wall, could see this mass going through the mesentery of the sigmoid and rectum, going down and then elected to get through the mesentery and going below this mass to create the distal resection. Able to get under the colon and free the mesentery and fat around the colon and then placed an Endo AYSE 60 across the colon. Had to use fires to get this all the way across and then grasp this end with my hand and then carefully started coming up the side with using a LigaSure to come across the mesentery clamping, coagulating and transecting. It was very stuck on the left wall had to pulled the colon out and then started just above the mass coming across the white line of Toldt, coming down trying to free this up and then again very stuck on the left pelvic wall, carefully taking this down with the LigaSure, trying to work from above and below. I elected to then go above the colon mass. Again make a defect in the mesentery with blunt dissection as well as with the LigaSure and then placed another Endo AYSE through here, again and Endo AYSE 60, two loads were used to come all the way across the colon and then could pull down superiorly and pull down and trying down and medially to try and get to take this area of inflammation off the left pelvic wall. Coming across, coming through the vasculature and then freeing this up off the left pelvic wall, identified the vessel and the ureters, careful to stay away from these and then continued to come across until we were finally with a LigaSure coming up across the mesentery clamping, coagulating and transecting and then removing this entire portion of colon. Pulled this up through then I elected to pull down the remaining descending colon, again freeing up a little bit along the white line of Toldt up to the splenic flexure but did not go really around the splenic flexure. Reserve like we had very good length of this portion of the colon. This was then brought up through the abdominal wall protector. Cut the distal portion of this off, placed a pursestring applicator and then placed the anvil for the 29 ILS into this portion of colon and then created a pursestring, tied this down around the anvil. Dr. Null then went below and using ILS first dilated with sound and then placed the ILS 29 mm up through the anus, up the rectum and then watched the trocar come out and then attached the anvil to the trocar and then tightened down and then held for 30 seconds to tighten down all the way; it was in the green section, clamped and fired and then removed. Appeared to get to good donuts, however, looked like one portion of the proximal portion of the colon had pulled out a little bit. At this point elected to open up the incisional a little bit more so that we could throw some sutures, elected to throw these open as opposed to laparoscopically. Using 3-0 Vicryl, did 4 simple sutures to oversew this intestine and then placed some saline in the pelvis held above the colon with my hand and Dr. Null then inserted a proctoscope and then insufflated with air. Did not see any leaks. Could see that the colon was distended and then released this air. At this point then the copiously irrigated with normal saline, suctioned this out, Did not appear to be any tension on the colon and at this point then elected to remove all ports and then close this midline incision, closed with number 1 double-stranded PDS one from the superior portion and inferior portion and tying to itself, copiously irrigated this incision with saline and then closing this with geno and then closed the two 12 mm incisions with geno as well. The patient tolerated the procedure well and he was transferred to recovery room in stable condition. Sponge, and instrument and needle correct at the end of the case. Dr. Null was there to assist, needed his assistance in identifying anatomy as well as needed someone to go below to help perform the anastomosis with retraction as well as with the instrumentation of laparoscopic instruments. Job ID: [id number] Dictated Date: 06/02/2016 16:55:20 Special Education Curriculum Specialist Date: 06/03/2016 12:01:11 / brennan ADAMS
--- NOTE | 2016-06-16 14:27 | Discharge Summary ---
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 In the ER: PT C/O SEVERE GENERALIZED ABDOMINAL PAIN ALL WEEK AND IS GETTING WORSE--STATES HE IS CONSTIPATED STATES HE HAS NOT HAD A BM SINCE Thursday05/19/16--STOOL AT THAT TIME WAS LIQUID , AND NOT PASSED ANYTHING ELSE SINCE THEN STOPPED PASSING GAS SEVERAL HOURS AGO BEGAN HAVING NAUSEA AND VOMITING THIS EVENING--HAS VOMITED 3-4 TIMES THIS EVENING HAS HAD DECREASED APPETITE, BUT HAS EATEN AND DRANK TODAY, BUT TONIGHT HAS NOT BEEN ABLE TO KEEP ANYTHING DOWN NO FEVER NO PROBLEMS URINATING NO RELIEF WITH PRUNE JUICE AND ENEMAS STATES HE OCCASIONALLY GETS CONSTIPATED BUT IS RESOLVED WITH PRUNE JUICE AND "GUMMY FIBER" ,BUT HAS NEVER BEEN THIS BAD When seen today he states he basically has no pain, just the constipation and he feels like "things are starting to gurgle". On the CT; radiologist read possible large bowel obstruction in the sigmoid region, also multiple diverticula seen in this area. He denies any previous history of LLQ pain. Pt denied any hematochezia or melena. Denies N/V today. Discharge Summary Procedures: Colonoscopy with biopsy Hand Assisted Lap Sigmoid colon resection with primary anastomosis Consultations Dr. Lowe General Surgery Discharge Physical Examination Allergies: Coded Allergies: No Known Drug Allergies (Unverified , 05/24/16) General Appearance: Alert, Oriented X3, Cooperative, No Acute Distress HEENT: PERRLA, EOMI Respiratory: Clear to Auscultation, Normal Air Movement Cardiovascular: Regular Rate, No Murmurs, Gallops Abdominal: Soft, Other (mildly tender at incisions) Extremities: No Clubbing, No Edema, No Tenderness/Swelling Neuro: Normal Gait, Normal Speech Psych/Mental Status: Mental Status NL, Mood NL Hospital Course Pt presented on 05/24 and surgery was asked to consult regarding possible partial large bowel obstruction. Patient was subsequently taken for a flexible sigmoidoscopy, but we were able to do a colonoscopy instead. He was found to have a mass and stricture in the sigmoid colon; biopsies were taken. Discussed with the patient the fact he is going to need a colon resection whether this is malignant or not and they're done the same way. Therefore he was started on a bowel prep on the . Unfortunately he could not keep all the bowel prep down and he was still dirty on the switched to a different prep and again seen on the . He was still dirty on the so tried one more time for bowel prep with Kitchen prep. The he stated he still had a brown bowel movement but it started this time the because of his stricture from the mass to be best just to go ahead with the bowel resection. Laparoscopic hand-assisted sigmoid colon resection was performed on the which without difficulty. He then improved slowly next few days. He had bowel movement on postoperative day one his pain was mainly controlled. He did have an epidural for pain control. Patient was switched to oral pain medications and his diet was increased slowly. PT and OT were sent to work with him as well as patient was told to ambulate in the halls. Patient slowly progressed and was discharged on the . Sent home in stable condition with oral pain medications and to follow- up in the office in one week. During the course of stay did open the bottom portion incision because of some redness but this turned out to be just some old hematoma there was no infection no purulence no sign no signs of infection. Discharge Instructions to patient/family Please see electonic discharge instructions given to patient. Discharge Medications Reviewed and agree with Discharge Medication list on patient's Discharge Instruction sheet Clinical Quality Measures DVT/VTE Risk/Contraindication: Risk Factor Score Per Nursin RFS Level Per Nursing on Admit: 3=High SUMMER LOWE DO Jun 16, 2016 14:26
== END 2016-05-30 15:43 | disposition home or self-care (01) | DRG 330 ==
LOC: EDUNIT# 00:10 → ER 00:13 → 4TH 03:00
PROVIDERS: ADMIT Surgery; ATTEND Surgery
PROC: 0DBN8ZX Excision of Sigmoid Colon, Via Natural or Artificial Opening Endoscopic, Diagnostic (ICD-10-PCS; 2016-05-24)
PROC: 0DTN0ZZ Resection of Sigmoid Colon, Open Approach (ICD-10-PCS; principal; 2016-05-27 12:20)
DX: K56.60 Unspecified intestinal obstruction (principal); L03.311 Cellulitis of abdominal wall; K52.9 Noninfective gastroenteritis and colitis, unspecified; E11.65 Type 2 diabetes mellitus with hyperglycemia; I10 Essential (primary) hypertension; F32.9 Major depressive disorder, single episode, unspecified; F41.9 Anxiety disorder, unspecified; E66.01 Morbid (severe) obesity due to excess calories; R51 Headache; Z68.37 Body mass index [BMI] 37.0-37.9, adult; D72.829 Elevated white blood cell count, unspecified; F17.220 Nicotine dependence, chewing tobacco, uncomplicated; R50.82 Postprocedural fever; E87.6 Hypokalemia
CPT/HCPCS: 36415; 74022; 74177; 80048; 80053; 81000; 82150; 82378; 82962; 83036; 83690; 83735; 85025; 85610; 87081; 88305; 88307; 93005; 94664; 94760; 96361; 96365; 96375

== ENCOUNTER → 2017-05-07 | Outpatient (REF) ==
[~2017-05-07] MED LIST changes: +CEPH-507 PO; +HYDR-3820 PO; +LISI-552 PO; +METF850T2 PO; +MULT-10 PO; +POTA20PA28 PO
--- NOTE | 2017-05-07 10:10 | Diagnostic Imaging Report ---
INDICATION: Back pain after a lifting injury. TIME OF EXAM: 9:41 AM FINDINGS: Three views of the lumbar spine were obtained. Curvature and alignment is normal. The vertebral body heights are well-maintained. There is some anterior wedging in the the lower thoracic spine, likely chronic. Disc spaces are fairly well-preserved. There is some degenerative disc disease and marginal spurring at the L2-3 level. IMPRESSION: Lower thoracic and lumbar spondylosis. No acute bony normality is detected. Dictated by: Dictated on workstation # [id number]
== END | disposition home or self-care (01) ==
LOC: OCC 09:12
PROVIDERS: ATTEND Nurse Practitioner Family
CPT/HCPCS: 72100

== ENCOUNTER 2020-10-05 21:54 | Observation (INO) | payer BC, OTHER ==
[~2020-10-05] VITALS: Ht 183 cm; Wt 106.3 kg
[~2020-10-05 21:54] MED LIST changes: +ACHYD1T PO; -HYDR-3820 PO; -LISI-552 PO; +LISI20TA26 PO; +METF-398 PO; -METF850T2 PO
[2020-10-05] MEDS ORDERED: METF-399 (22:07)
[2020-10-05] MEDS ORDERED: ALPR2TAB6 (22:07)
[2020-10-05] MEDS ORDERED: GLIM4TAB5 (22:07)
[2020-10-05 22:09] LABS: BASOPHILS % (AUTO) 1 % (0-10); EOSINOPHILS # (AUTO) 0.1 10^3/uL (0.0-0.3); EOSINOPHILS % (AUTO) 1 % (0-10); HEMATOCRIT 38 % (40-54); HEMOGLOBIN 12.9 g/dL (13.3-17.7); LYMPHOCYTES # (AUTO) 0.9 10^3/uL (1.0-4.0); LYMPHOCYTES % (AUTO) 16 % (12-44); MEAN CORPUSCULAR HEMOGLOBIN 29 pg (25-34); MEAN CORPUSCULAR HGB CONC 34 g/dL (32-36); MEAN CORPUSCULAR VOLUME 85 fL (80-99); MEAN PLATELET VOLUME 9.6 fL (9.0-12.2); MONOCYTES # (AUTO) 0.4 10^3/uL (0.0-1.0); MONOCYTES % (AUTO) 8 % (0-12); NEUTROPHILS # (AUTO) 3.9 10^3/uL (1.8-7.8); NEUTROPHILS % (AUTO) 73 % (42-75); PLATELET COUNT 157 10^3/uL (130-400); WHITE BLOOD COUNT 5.3 10^3/uL (4.3-11.0)
[2020-10-05] MEDS ORDERED: LACTATED RINGERS 1,000 ML IV ONE ×2 (22:15)
--- NOTE | 2020-10-05 22:17 | ED General ---
General Chief Complaint: Glucose Problems Stated Complaint: LOW BLOOD SUGAR Nursing Triage Note: BROUGHT IN BY [facility] FOR LOW GLUCOSE. INITIAL GLUCOSE 26MG/DL PER EMS. GLUCOSE ON ARRIVAL TO HOSPITAL 225 AFTER 2 ORAL GLUCOSE ET. 400ML D10 ADMINISTERED. Source of Information: Patient Exam Limitations: No Limitations History of Present Illness Date Seen by Provider: Oct 05, 2020 Time Seen by Provider: 22:00 Initial Comments Patient to the ER by EMS from home with chief complaint that he was slurring his speech and acting very out of it. 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 He feels wore out and tired and had a low blood sugar a couple nights ago and was 26 when [facility] They gave him 2 oral glucose tablets and started 500 bag of D10 which was almost completely in by the time he arrived to the ER and his a presenting blood sugar was over 200. He is a type II diabetic on a sulfonylurea and Metformin. He has been taking his medications as prescribed as well as he takes lisinopril for blood pressure. Known to Dr. Aldana Allergies and Home Medications Allergies Coded Allergies: No Known Drug Allergies (Unverified , 05/24/16) Home Medications Lisinopril 20 Mg Tablet, 20 MG PO BID, (Reported) Last Action: Reviewed Patient Home Medication List Home Medication List Reviewed: Yes Review of Systems Review of Systems Constitutional: No chills; diaphoresis; No fever; weakness EENTM: No hearing loss, No ear pain Respiratory: No cough, No short of breath Cardiovascular: No edema, No palpitations Gastrointestinal: No abdominal pain, No nausea, No vomiting Genitourinary: No discharge, No dysuria Musculoskeletal: No back pain, No joint pain Skin: No pruritus, No rash All Other Systems Reviewed Negative Unless Noted: Yes Past Tmgybqa-Gcwrkz-Fewqqu Hx Patient Social History Tobacco Use?: Yes Smokeless Tobacco Frequency: Current Everyday User Substance use?: No Alcohol Use?: Yes Alcohol type: Beer Alcohol Frequency: Daily Pt feels they are or have been: No Immunizations Up To Date PED Vaccines UTD: No Second COVID19 Vaccination Keven: 08/04/20 COVID19 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: NORIS Seasonal Allergies Seasonal Allergies: Yes Past Medical History Surgeries: Yes Appendectomy Respiratory: No Cardiac: Yes Hypertension Neurological: No Reproductive Disorders: No Sexually Transmitted Disease: No Genitourinary: No Gastrointestinal: Yes Chronic Constipation, Hemorrhoids Musculoskeletal: Yes Fractures Endocrine: Yes Diabetes, Non-Insulin dep HEENT: No Cancer: No Psychosocial: Yes Anxiety, Depression Integumentary: No Blood Disorders: No Adverse Reaction/Blood Tranf: No Family Medical History Arthritis 19 FATHER 19 MOTHER G8 SISTER Asthma G8 SISTER Diabetes mellitus 19 FATHER FH: breast cancer 19 MOTHER FH: irritable bowel syndrome 19 FATHER G8 SISTER FH: skin cancer 19 FATHER G8 SISTER Myocardial infarction 19 MOTHER Diabetes, Other Conditions/Hx Physical Exam Vital Signs Vital Signs - First Documented 10/05/20 21:56 Temp 36.5 Pulse 74 Resp 16 B/P (MAP) 149/88 (108) Pulse Ox 98 O2 Delivery Room Air Capillary Refill : Less Than 3 Seconds Height, Weight, BMI Height: 6'0.00" Weight: 279lbs. 4.0oz. 126.558042bs; 30.00 BMI Method:Stated General Appearance: Anxious, Moderate Distress Eyes: Bilateral Eye Normal Inspection, Bilateral Eye PERRL, Bilateral Eye EOMI HEENT: PERRL/EOMI, Pharynx Normal, Moist Mucous Membranes Neck: Full Range of Motion, Normal Inspection, Non Tender Respiratory: Lungs Clear, Normal Breath Sounds, No Accessory Muscle Use, No Respiratory Distress Cardiovascular: Regular Rate, Rhythm, No Edema, Normal Peripheral Pulses Gastrointestinal: Normal Bowel Sounds, Non Tender, Soft Extremity: Normal Capillary Refill, Normal Inspection, No Pedal Edema Neurologic/Psychiatric: Alert, Oriented x3, No Motor/Sensory Deficits, Normal Mood/Affect, water treatment specialist II-XII Norm as Tested, Other (NIH 0 points on arrival) Skin: Other (Sunburn on the exposed areas of skin.) Progress/Results/Core Measures Suspected Sepsis SIRS Temperature: Pulse: 74 Respiratory Rate: 16 Laboratory Tests 10/05/20 22:05: White Blood Count 5.3 Blood Pressure 149 /88 Mean: 108 Laboratory Tests 10/05/20 22:05: Creatinine 1.05, Platelet Count 157, Total Bilirubin 0.2 Results/Orders Lab Results Laboratory Tests Test 10/05/20 22:05 10/05/20 22:14 10/05/20 23:18 Range/Units White Blood Count 5.3 4.3-11.0 10^3/uL Red Blood Count 4.45 4.30-5.52 10^6/uL Hemoglobin 12.9 L 13.3-17.7 g/dL Hematocrit 38 L 40-54 % Mean Corpuscular Volume 85 80-99 fL Mean Corpuscular Hemoglobin 29 25-34 pg Mean Corpuscular Hemoglobin Concent 34 32-36 g/dL Red Cell Distribution Width 11.4 10.0-14.5 % Platelet Count 157 130-400 10^3/uL Mean Platelet Volume 9.6 9.0-12.2 fL Immature Granulocyte % (Auto) 1 % Neutrophils (%) (Auto) 73 42-75 % Lymphocytes (%) (Auto) 16 12-44 % Monocytes (%) (Auto) 8 0-12 % Eosinophils (%) (Auto) 1 0-10 % Basophils (%) (Auto) 1 0-10 % Neutrophils # (Auto) 3.9 1.8-7.8 10^3/uL Lymphocytes # (Auto) 0.9 L 1.0-4.0 10^3/uL Monocytes # (Auto) 0.4 0.0-1.0 10^3/uL Eosinophils # (Auto) 0.1 0.0-0.3 10^3/uL Basophils # (Auto) 0.0 0.0-0.1 10^3/uL Immature Granulocyte # (Auto) 0.0 0.0-0.1 10^3/uL Sodium Level 122 *L 135-145 MMOL/L Potassium Level 4.4 3.6-5.0 MMOL/L Chloride Level 90 L 98-107 MMOL/L Carbon Dioxide Level 15 L 21-32 MMOL/L Anion Gap 17 H 5-14 MMOL/L Blood Urea Nitrogen 9 7-18 MG/DL Creatinine 1.05 0.60-1.30 MG/DL Estimat Glomerular Filtration Rate > 60 BUN/Creatinine Ratio 9 Glucose Level 167 H 70-105 MG/DL Calcium Level 9.1 8.5-10.1 MG/DL Corrected Calcium 8.8 8.5-10.1 MG/DL Magnesium Level 1.3 L 1.6-2.4 MG/DL Total Bilirubin 0.2 0.1-1.0 MG/DL Aspartate Amino Transf (AST/SGOT) 71 H 5-34 U/L Alanine Aminotransferase (ALT/SGPT) 76 H 0-55 U/L Alkaline Phosphatase 58 40-136 U/L Total Protein 7.6 6.4-8.2 GM/DL Albumin 4.4 3.2-4.5 GM/DL Urine Color STRAW Urine Clarity CLEAR Urine pH 5.5 5-9 Urine Specific [place] <=1.005 1.016-1.022 Urine Protein NEGATIVE NEGATIVE Urine Glucose (UA) 2+ H NEGATIVE Urine Ketones NEGATIVE NEGATIVE Urine Nitrite NEGATIVE NEGATIVE Urine Bilirubin NEGATIVE NEGATIVE Urine Urobilinogen 0.2 < = 1.0 MG/DL Urine Leukocyte Esterase NEGATIVE NEGATIVE Urine RBC (Auto) NEGATIVE NEGATIVE Urine RBC NONE /HPF Urine WBC NONE /HPF Urine Squamous Epithelial Cells NONE /HPF Urine Crystals NONE /LPF Urine Bacteria NEGATIVE /HPF Urine Casts PRESENT /LPF Urine Hyaline Casts RARE /LPF Urine Mucus NEGATIVE /LPF Urine Culture Indicated NO Glucometer 166 H 70-110 MG/DL My Orders Orders - KVNG [facility]ETT Ed Iv/Invasive Line Start (10/05/20 22:14) Lactated Ringers (Lr 1000 Ml Iv Solution (10/05/20 22:15) Lactated Ringers (Lr 1000 Ml Iv Solution (10/05/20 22:15) Magnesium (10/05/20 22:14) Accucheck Stat ONCE (10/05/20 23:04) Medications Given in ED Current Medications Medications Dose Ordered Sig/Xena Route Start Time Stop Time Status Last Admin Dose Admin Lactated Ringer's 1,000 ml @ 0 mls/hr Q0M ONCE IV 10/05/20 22:15 10/05/20 22:17 DC 10/05/20 22:35 0 MLS/HR Lactated Ringer's 1,000 ml @ 0 mls/hr Q0M ONCE IV 10/05/20 22:15 10/05/20 22:17 DC 10/05/20 22:35 0 MLS/HR Vital Signs/I&O 10/05/20 21:56 Temp 36.5 Pulse 74 Resp 16 B/P (MAP) 149/88 (108) Pulse Ox 98 O2 Delivery Room Air 10/06/20 00:00 Intake Total 400 ml Balance 400 ml Capillary Refill : Less Than 3 Seconds Blood Pressure Mean: 108 Progress Note : Time: 05:19 Progress Note 2 L lactated Ringer's initially given. Patient is having some hyponatremia as well as hypomagnesemia related to dehydration related to a heat injury. After rehydration it was reasonable to do an observation stay for his hyponatremia and some more gentle IV fluids. Departure Communication (Admissions) Time/Spoke to Admitting Phy: 00:10 Discussed the case with Dr. Elmore who agrees to observe the patient for IV fluid rehydration and glucose monitoring Impression Primary Impression: Dehydration Additional Impressions: Hyponatremia Hypoglycemia associated with diabetes Hypomagnesemia Heat exhaustion Qualified Codes: T67.5XXA - Heat exhaustion, unspecified, initial encounter Disposition: ADMITTED INPATIENT Condition: Stable Admissions Decision to Admit Reason: Admit from ER (General) Decision to Admit/Date: Oct 06, 2020 Time/Decision to Admit Time: 00:01 Departure-Patient Inst. Referrals: GABRIELLA LLAMAS MD (PCP/Family) Primary Care Physician Copy Copies To 1: VANNESSA ALDANA MD, TITUS J Oct 05, 2020 22:17
[2020-10-05 22:21] LABS: ALBUMIN 4.4 GM/DL (3.2-4.5)
[2020-10-05 22:22] LABS: CHLORIDE 90 MMOL/L (98-107); POTASSIUM 4.4 MMOL/L (3.6-5.0)
[2020-10-05 22:23] LABS: CALCIUM 9.1 MG/DL (8.5-10.1)
[2020-10-05 22:24] LABS: GLUCOSE 167 MG/DL (70-105); TOTAL PROTEIN 7.6 GM/DL (6.4-8.2)
[2020-10-05 22:25] LABS: CARBON DIOXIDE 15 MMOL/L (21-32)
[2020-10-05 22:26] LABS: BILIRUBIN,TOTAL 0.2 MG/DL (0.1-1.0)
[2020-10-05 22:27] LABS: ALKALINE PHOSPHATASE 58 U/L (40-136)
[2020-10-05 22:27] LABS: BILIRUBIN,URINE NEGATIVE (NEGATIVE); CLARITY,URINE CLEAR; GLUCOSE, URINE (UA) 2+ (NEGATIVE); KETONES,URINE NEGATIVE (NEGATIVE); LEUKOCYTE ESTERASE ,URINE NEGATIVE (NEGATIVE); NITRITE,URINE NEGATIVE (NEGATIVE); PH,URINE 5.5 (5-9); PROTEIN,URINE NEGATIVE (NEGATIVE)
[2020-10-05 22:28] LABS: CREATININE SERUM 1.05 MG/DL (0.60-1.30)
[2020-10-05 22:29] LABS: BUN/CREATININE RATIO 9
[2020-10-05 22:30] LABS: ALANINE AMINOTRANSFERASE 76 U/L (0-55)
[2020-10-05 22:34] LABS: GFR ESTIMATED > 60
[2020-10-05 22:35] LABS: SODIUM 122 MMOL/L (135-145)
[2020-10-05 22:37] LABS: BACTERIA,URINE NEGATIVE /HPF; COLOR,URINE STRAW; HYALINE CASTS, URINE RARE /LPF
[2020-10-06] MEDS ORDERED: MAGNESIUM 1 GM/D5W 100 ML IVPB IV ONE (01:30)
[2020-10-06] MEDS ORDERED: ACETAMINOPHEN 325 MG TABLET PO PRN (01:30)
[2020-10-06] MEDS ORDERED: ONDANSETRON 4 MG/2 ML (SDV) Z0FRAN IVP PRN (01:30)
[2020-10-06] MEDS: NS IV 1000 ML 1,000 ML IV SCH ×2 (02:13→12:40)
[2020-10-06 03:36] VITALS: BP 156/89
[2020-10-06 05:47] LABS: BASOPHILS % (AUTO) 1 % (0-10); EOSINOPHILS # (AUTO) 0.1 10^3/uL (0.0-0.3); EOSINOPHILS % (AUTO) 1 % (0-10); HEMATOCRIT 39 % (40-54); HEMOGLOBIN 13.1 g/dL (13.3-17.7); LYMPHOCYTES # (AUTO) 1.3 10^3/uL (1.0-4.0); LYMPHOCYTES % (AUTO) 25 % (12-44); MEAN CORPUSCULAR HEMOGLOBIN 29 pg (25-34); MEAN CORPUSCULAR HGB CONC 34 g/dL (32-36); MEAN CORPUSCULAR VOLUME 85 fL (80-99); MEAN PLATELET VOLUME 9.6 fL (9.0-12.2); MONOCYTES # (AUTO) 0.7 10^3/uL (0.0-1.0); MONOCYTES % (AUTO) 12 % (0-12); NEUTROPHILS # (AUTO) 3.3 10^3/uL (1.8-7.8); NEUTROPHILS % (AUTO) 61 % (42-75); PLATELET COUNT 173 10^3/uL (130-400); WHITE BLOOD COUNT 5.4 10^3/uL (4.3-11.0)
[2020-10-06 06:03] LABS: ALBUMIN 4.2 GM/DL (3.2-4.5); CHLORIDE 96 MMOL/L (98-107); POTASSIUM 5.3 MMOL/L (3.6-5.0); SODIUM 127 MMOL/L (135-145)
[2020-10-06 06:05] LABS: GLUCOSE 188 MG/DL (70-105); TOTAL PROTEIN 7.4 GM/DL (6.4-8.2)
[2020-10-06 06:07] LABS: BILIRUBIN,TOTAL 0.4 MG/DL (0.1-1.0); CARBON DIOXIDE 17 MMOL/L (21-32)
[2020-10-06 06:09] LABS: ALKALINE PHOSPHATASE 68 U/L (40-136); CREATININE SERUM 0.86 MG/DL (0.60-1.30); GFR ESTIMATED > 60
[2020-10-06 06:10] LABS: BUN/CREATININE RATIO 8
[2020-10-06 06:12] LABS: ALANINE AMINOTRANSFERASE 69 U/L (0-55)
[2020-10-06] MEDS: inSUlin ASPART (NovoLOG) 1 UNIT/0.01 ML (CHARGE PER UNIT) SC SCH ×3 (06:40→12:35)
[2020-10-06 08:11] VITALS: BP 136/82
[2020-10-06 11:41] VITALS: BP 135/81
[2020-10-06] MEDS ORDERED: NF-NACL1GT PO (12:17)
--- NOTE | 2020-10-06 12:19 | Short Stay Summary-Hospitalist ---
History of Present Illness HPI/Chief Complaint CC: Weakness and severe hyponatremia HPI: This is a 50-year-old white male clinic patient of Dr. Wright but previously was Dr. Aggarwal patient but left her because she asked him for urine drug screen and then went to Dr. Chauhan but did not like him so is been with Dr. Wright and he has dropped his hemoglobin A1c from 13 down to 5.6 by watching diet selections and monitoring closely. He presented to the ER with weakness after he was at work where it was very hot and he was sweating a great deal and he was drinking a lot of fluid water in particular to help his weight loss he was found to have a sodium level 122. He talks a great deal during our visit about his diabetes and weight loss management and so forth I am barely able to provide any medical recommendations. He is doing well now with sodium level 127 and much better so he will be taking salt tablets because of so much sweating at work and repeat BMP on Thursday. Source: patient Exam Limitations: no limitations Date Seen 10/06/20 Time Seen by a Provider: 12:00 Attending Physician Pat Strong Rachel L MD Referring Physician Date of Admission Oct 06, 2020 at 00:10 Home Medications & Allergies Home Medications Reviewed patient Home Medication Reconciliation performed by pharmacy medication reconciliations orthophotography technician and/or nursing. Patients Allergies have been reviewed. Allergies Allergies Coded Allergies No Known Drug Allergies (Unverified05/24/16) Past Qpdjoee-Taurek-Wrmoxn Hx Patient Social History Marrital Status: cohabiting Employed/Student: employed Tobacco Use?: Yes Smoking Status: Never a Smoker Smokeless type used: Chew Smokeless Tobacco Frequency: Current Everyday User Use of E-Cig and/or Vaping dev: No Substance use?: No Alcohol Use?: Yes Alcohol type: Beer Alcohol Frequency: Daily Additional Alcohol Comments: 6-12/DAY Pt feels they are or have been: No Immunizations Up To Date Date of Influenza Vaccine: Feb 05, 2016 First/Initial COVID19 Vaccinat: 08/04/20 Second COVID19 Vaccination Keven: 08/04/20 Tetanus Booster (TDap): Unknown Hepatitis A: No Hepatitis B: No PED Vaccines UTD: No Date of Pneumonia Vaccine: Feb 05, 2016 Seasonal Allergies Seasonal Allergies: Yes Current Status Advance Directives: No Communicates: Verbally Primary Language: Citizen Of [place] Preferred Spoken Language: Citizen Of [place] Is interpretation needed?: No Implanted or Applied Medical D: None Past Medical History Surgeries: Appendectomy Hypertension Sexually Transmitted Disease: No Chronic Constipation, Hemorrhoids Fractures Diabetes, Non-Insulin dep Anxiety, Depression Blood Disorders: No Adverse Reaction/Blood Tranf: No Family Medical History Arthritis 19 FATHER 19 MOTHER G8 SISTER Asthma G8 SISTER Diabetes mellitus 19 FATHER FH: breast cancer 19 MOTHER FH: irritable bowel syndrome 19 FATHER G8 SISTER FH: skin cancer 19 FATHER G8 SISTER Myocardial infarction 19 MOTHER Diabetes, Other Conditions/Hx Review of Systems Constitutional: see HPI, malaise, weakness Physical Exam Physical Exam Vital Signs Vital Signs - First Documented 10/05/20 21:56 Temp 36.5 Pulse 74 Resp 16 B/P (MAP) 149/88 (108) Pulse Ox 98 O2 Delivery Room Air Capillary Refill : Less Than 3 Seconds Height, Weight, BMI Height: 6'0.00" Weight: 279lbs. 4.0oz. 126.125079aa; 30.90 BMI Method:Stated General Appearance: No Apparent Distress, Anxious Eyes: Bilateral Eye Normal Inspection, Bilateral Eye PERRL, Bilateral Eye EOMI HEENT: PERRL/EOMI, Pharynx Normal, Moist Mucous Membranes Neck: Full Range of Motion, Normal Inspection, Non Tender Respiratory: Lungs Clear, Normal Breath Sounds, No Accessory Muscle Use, No Respiratory Distress Cardiovascular: Regular Rate, Rhythm, No Edema, Normal Peripheral Pulses Gastrointestinal: Normal Bowel Sounds, Non Tender, Soft Extremity: Normal Capillary Refill, Normal Inspection, No Pedal Edema Neurologic/Psychiatric: Alert, Oriented x3, No Motor/Sensory Deficits, Normal Mood/Affect, 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 Short Stay Diagnosis Discharge Diagnosis-Short Stay Admission Diagnosis Assessment: Hyponatremia due to excessive polydipsia with water and sodium restriction for blood pressure management Occupational heat exposure causing severe sweating Diabetes mellitus Hypertension Plan: Salt tablets Discharge home Final Discharge Diagnosis Assessment: Hyponatremia due to excessive polydipsia with water and sodium restriction for blood pressure management Occupational heat exposure causing severe sweating Diabetes mellitus Hypertension Plan: Salt tablets Discharge home Conclusion Plan Assessment: Hyponatremia due to excessive polydipsia with water and sodium restriction for blood pressure management Occupational heat exposure causing severe sweating Diabetes mellitus Hypertension Plan: Salt tablets Discharge home Diagnosis/Problems Diagnosis/Problems (1) Hyponatremia (2) Hypoglycemia associated with diabetes Status: Acute (3) Heat exhaustion Status: Acute Qualifiers: Qualified Codes: T67.5XXA - Heat exhaustion, unspecified, initial encounter (4) Dehydration PAT STRONG DO Oct 06, 2020 12:19
== END 2020-10-06 12:16 | disposition home or self-care (01) ==
LOC: EDUNIT# 21:54 → ER 21:55 → 4TH 21:56 → UNDOADMOB 10-06 00:10 → UNDODISOB 10-06 13:45
PROVIDERS: ADMIT Internal Medicine; ATTEND Internal Medicine
DX: E87.1 Hypo-osmolality and hyponatremia (principal); R63.1 Polydipsia; E86.0 Dehydration; E11.649 Type 2 diabetes mellitus with hypoglycemia without coma; E83.42 Hypomagnesemia; T67.5XXA Heat exhaustion, unspecified, initial encounter; K59.09 Other constipation; I10 Essential (primary) hypertension; F32.9 Major depressive disorder, single episode, unspecified; F41.9 Anxiety disorder, unspecified; F17.210 Nicotine dependence, cigarettes, uncomplicated; Z79.899 Other long term (current) drug therapy; Z90.89 Acquired absence of other organs; Z83.3 Family history of diabetes mellitus; Z80.8 Family history of malignant neoplasm of other organs or systems; Z82.61 Family history of arthritis
CPT/HCPCS: 80053 ×2; 81000; 82947 ×2; 83735; 85025 ×2; 99284; G0378; 36415